=== PATIENT | male | born 1955 | race Caucasian/White ===

== ENCOUNTER → 2023-09-11 12:45 | Outpatient (REF) | payer MEDICARE, SELFPAY | LOC: RAD 12:45 | PROVIDERS: ATTENDING PHYSICIAN Surgery Vascular Surgery | DX: I73.9 Peripheral vascular disease, unspecified (principal) | CPT/HCPCS: 93922; 93925 ==

== ENCOUNTER 2023-09-16 15:15 | Inpatient (IN) | payer MEDICARE, SELFPAY ==
[2023-09-16] VITALS (34 sets, daily range): BP systolic 109–154; BP diastolic 62–84; BMI 31.4
[2023-09-16 11:15] LABS: APTT 23.1 Sec (23.4-35.0); INR 0.93; PT 12.5 Sec (11.4-14.6)
[2023-09-16 11:28] LABS: Hemoglobin 16.4 g/dL (13.0-18.0); Mean Corp Hgb Conc. 34.9 g/dL (33.0-37.0); Mean Corpuscular Hgb 30.5 pg (27.0-31.0); Mean Corpuscular Volume 87.5 fL (80.0-94.0); Mean Platelet Volume 9.8 fL (7.4-10.4); Platelet Count 201 10^3/uL (130-400); Red Blood Cell Count 5.37 10^6/uL (4.70-6.10); Red Cell Dist. Width 13.7 % (11.5-14.5); White Blood Cell Count 5.1 10^3/uL (4.8-10.8)
[2023-09-16 11:32] LABS: Blood Urea Nitrogen 14 mg/dl (9-20); Calcium 9.6 mg/dl (8.4-10.2); Carbon Dioxide 28 mmol/L (22-30); Chloride 104 mmol/L (98-107); Glucose 203 mg/dl (70-99); Potassium 4.1 mmol/L (3.5-5.1); Sodium 139 mmol/L (135-145); eGFR > 60.00
[2023-09-16 11:45] LABS: Glucose - Point of Care 189 mg/dl (70-99)
[2023-09-16] MEDS: NSS 272 ML IV (11:53)
--- NOTE | 2023-09-16 13:36 | W.SUR.PREOP ---
Pre-Operative Surgical Note
-
I have examined this patient prior to the performance of the scheduled procedure.
The patient's condition is unchanged from the time of the current History and
Physical and the patient is able to undergo the scheduled procedure.
--- NOTE | 2023-09-16 15:08 | W.SUR.POST ---
Surgical Immediate Post Op
Note
Pre Op Diagnosis: PAD
Post Op Diagnosis: PAD
Procedure Performed: RLE angiogram, right IVL/PRESSURIZER/stent to popliteal artery, balloon angioplasty TP trunk
Primary Surgeon: Ryan
Anesthesia: local and sedation
Estimated Blood Loss: <2cc
Fluids: see anesthesia flow sheet
Drains/Shunts: none
Specimens/Cultures: none
Doppler/Duplex/Angio (Y/N): Y
Complications: none
Operative Findings: palpable PT upon completion
[2023-09-16 15:15] LABS: Glucose - Point of Care 178 mg/dl (70-99)
[2023-09-16] MEDS: NSS 1000 IV (17:13)
[2023-09-16] MEDS: HEPARIN SC (17:14)
--- NOTE | 2023-09-16 17:18 | OR.RPT ---
Operative Report
Operative Report
PROCEDURE DATE: 09/16/2023
Preoperative diagnosis: Severe debilitating right calf claudication.
Postoperative diagnosis: Same
Procedure:
1. Duplex assisted left common femoral artery cannulation.
2. Aortogram and pelvic angiogram.
3. Right lower extremity arteriogram with third order vessel catheterization of right posterior tibial artery via left common femoral artery puncture.
4. Shockwave lithotripsy balloon angioplasty (IVL) right popliteal artery severe plaque stenosis with 5 mm shockwave angioplasty balloon.
5. Plain old balloon angioplasty right popliteal artery with a 5 mm x 4 cm angioplasty balloon.
6. Placement of Zilver PTX 6 mm x 4 cm stent behind the knee popliteal artery.
7. Balloon angioplasty of severe tibioperoneal trunk stenosis with 3.5 mm and then 4 mm angioplasty balloon.
8. Left femoral angiogram.
9. Supervision interpretation.
Surgeon: Ryan
Furnace Operator Oil Or Gas: None
Complications: None
Anesthesia: Local, sedation
Fluoroscopy:
13.9 min
72 mGy
16.39 Gy.cm2
Indications for procedure:
Debilitating right calf claudication. Risk/benefits/alternatives of revascularization were also discussed. Patient understood all wish to proceed.
Description of procedure:
Patient was identified, brought to the operating room. Placed on the table in the supine position. After the adequate administration of anesthesia, the patient was prepped and draped in the standard surgical fashion. A standard preoperative
timeout was undertaken and everybody was in agreement with the plan.
The left common femoral artery was accessed with a micropuncture kit under direct duplex ultrasound guidance. A 5 Kittitian sheath was then advanced over a 0.035 inch wire, and a meier's hook catheter was advanced into the abdominal aorta.
Aortogram and pelvic angiogram was obtained. Findings as follows:
Infrarenal aorta: [Patent with no significant stenosis]
Right common iliac artery: [Patent with no significant stenosis]
Right external iliac artery:[Patent with no significant stenosis]
Left common iliac artery:[Patent with no significant stenosis]
Left external iliac artery:[Patent with no significant stenosis]
Using a floppy angled hydrophilic wire, the right common femoral artery was cannulated and the catheter was advanced. Right lower extremity arteriogram was obtained. Findings as follows:
Common femoral artery: Patent with mild atherosclerotic plaque, no significant stenosis.
Profunda femoris artery: Patent with no significant stenosis.
Superficial femoral artery: Patent with no significant stenosis. There was 1 focal popcorn like plaque, but did not appear to cause a significant stenosis or flow limitation.
Popliteal artery: Severe bulky atherosclerotic calcified plaque behind the knee popliteal artery in the midsegment with focal occlusion or near occlusion.
Anterior tibial artery: Patent origin and then occluded.
Tibial peroneal trunk: Patent with severe proximal stenosis.
Peroneal artery: Patent proximally with poor filling distally.
Posterior tibial artery: Patent with no significant stenosis, crossed ankle onto the foot. Dominant runoff vessel to the foot.
At this point I selectively cannulated the right superficial femoral artery. I then placed up and over 6 Kittitian sheath access. I gave the patient an appropriate dose of heparin. Next under roadmap assisted guidance with some difficulty I was
finally able to traverse the popliteal artery occlusion with a flap angled hydrophilic wire and a CXI catheter. I then gained wire access into the posterior tibial artery after traversing the tibioperoneal trunk stenosis with some difficulty. I
then exchanged for a 0.014 inch wire. Given the heavy plaque/calcified nature of the popliteal artery stenosis I felt that standard angioplasty alone would not dilate this enough. Therefore, I then performed shockwave lithotripsy angioplasty of
the behind the knee heavily calcified stenosis. I used a 5 mm x 4 cm shockwave IVL catheter. Completion angiogram demonstrated reasonable result but there was still some moderate residual stenosis. Significantly improved from pre-angioplasty. I
then balloon angioplastied the tibioperoneal trunk stenosis with a 3 mm angioplasty balloon. Completion angiogram demonstrated marginal improvement. Next, however, I angioplastied the popliteal artery stenosis again with a 5 mm plain old standard
angioplasty balloon.. However I still could not get the waist to resolve completely. I therefore then used a 6 mm x 4 cm Zilver PTX stent. This was post angioplastied with a 5 mm balloon at higher inflation pressure. I still could not completely
resolve the waist/mild stenosis but it was not flow-limiting. Now I turned my attention again to the tibioperoneal trunk. I used a 4 mm angioplasty balloon based on the size of the vessel proximal and distal. I used a prolonged inflation.
Completion angiogram now demonstrated significantly improved result. Mild residual stenosis noted. Patent flow into the runoff. At this point I was satisfied and felt nothing further to do endovascularly. I therefore then withdrew my sheath into
the left external iliac artery. Left femoral angiogram demonstrated good puncture in the left common femoral artery. Therefore we exchanged for a short 6 Kittitian sheath. Wires and catheters were withdrawn. Patient was transported to the recovery
room where the sheath was withdrawn and manual pressure was applied. Hemostasis was fully achieved. Of note he was given some protamine to reverse the heparin.
The patient tolerated procedure well. Upon completion he had a 1+/2+ palpable right PT pulse.
--- NOTE | 2023-09-16 17:20 | PTCARENOTE ---
Received the patient from PACU in a stretcher. The patient is aaox3, vital sign are stable. He is 100% a-paced on the monitor. Left groin dressing is c/d/i. Positive pedal and tibial pulses are noted by Doppler BL. He has no complaints of pain. I
oriented him to his room. I instructed him on his activity restrictions and expected OOB time. His call moreno is within reach. His daughter is at his bedside.
[2023-09-16 17:39] LABS: Glucose - Point of Care 229 mg/dl (70-99)
[2023-09-16] MEDS: LANTUS 0.25 UNITS SC (18:34)
[2023-09-16] MEDS: NOVOLOG FLEXPEN 10 UNITS SC (19:04)
[2023-09-16] MEDS: COREG 25 MG PO (20:10)
--- NOTE | 2023-09-16 20:30 | PTCARENOTE ---
Addendum entered by Jasson Roman RN 09/16/23 21:43:
Assumed care. Daughter at bedside. Brazilian accent speaks [place] Islander. Left femoral site CDI, soft. Pulses with Doppler, weaker left pedal and left posterior tib. in comparison to the right. Both verified with Doppler, this is unchanged from handoff from
prior nurse. Patient does have some intermittent mild loss of sensation to the top of right foot, can feel me touching his foot, his leg and foot repositioned in bed with some relief, both feet and legs warm to touch. SR on telemetry, denies pain,
call moreno in reach
Addendum entered by Jasson Roman RN 09/16/23 20:39:
Assumed care. Daughter at bedside to help translate, yemeni speaking. Left femoral site CDI, soft. Pulses with Doppler, weaker left pedal and left posterior tib. in comparison to the right. Both verified with Doppler, this is unchanged from handoff
from prior nurse. Patient does have some intermittent mild loss of sensation to the top of right foot, can feel me touching his foot, his leg and foot repositioned in bed with some relief, both feet and legs warm to touch. SR on telemetry, denies
pain, call moreno in reach
Original Note:
Assumed care. Daughter at bedside to help translate, yemeni speaking. Left femoral site CDI, soft. Pulses with Doppler, weaker left pedal and left posterior tib. in comparison to the right. Both verified with Doppler, this is unchanged from handoff
from prior nurse. Patient does have some intermittent loss of sensation to the top of right foot, leg and foot repositioned in bed with some relief, both feet and legs warm to touch. SR on telemetry, denies pain, call moreno in reach
[2023-09-16 21:30] LABS: Glucose - Point of Care 339 mg/dl (70-99)
[2023-09-16] MEDS: ZETIA 10 MG PO (21:41)
[2023-09-16] MEDS: ENTRESTO 24 MG/26 MG 1 TAB PO (21:41)
[2023-09-16] MEDS: CRESTOR 20 MG PO (21:41)
--- NOTE | 2023-09-16 21:49 | PTCARENOTE ---
Blood sugar elevated, just finished eating around 8 pm, will re-assess. Patient assisted out of bed, voided.
[2023-09-16 22:56] LABS: Glucose - Point of Care 329 mg/dl (70-99)
[2023-09-16] MEDS: NOVOLOG FLEXPEN-LOW RESISTANCE 4 UNITS SC (23:48)
[2023-09-16] MEDS: HEPARIN 5000 UNITS SC (23:48)
--- NOTE | 2023-09-17 00:07 | PTCARENOTE ---
Blood sugars elevated since dinner. Orders received for sliding scale insulin, 4 units given
[2023-09-17 03:47] LABS: Glucose - Point of Care 229 mg/dl (70-99)
--- NOTE | 2023-09-17 04:03 | PTCARENOTE ---
Patient awake, blood sugar 229. VSS. Has mild loss of sensation to outer aspect of his feet that comes and goes. Pulses verified with Doppler, feet and legs are warm to touch. Left groin site soft
[2023-09-17 07:50] LABS: Glucose - Point of Care 242 mg/dl (70-99)
--- NOTE | 2023-09-17 07:57 | W.PN.VS ---
Addendum entered and electronically signed by Rosalio Davis MD 09/17/23 10:46:
Seen and examined with KIMMIE Cowart. Agree with findings as noted below. Left groin puncture site flat, no hematoma. Right foot warm with 2+ palpable PT pulse. Plan/as discussed and noted below.
Original Note:
Today's Communication / Plan
-
Seen and assessed with Dr. Davis
Assessment/Plan
-
POD 1 Shockwave lithotripsy balloon angioplasty (IVL) right popliteal artery severe plaque stenosis with 5 mm shockwave angioplasty balloon, Plain old balloon angioplasty right popliteal artery with a 5 mm x 4 cm angioplasty balloon. Placement of
Zilver PTX 6 mm x 4 cm stent behind the knee popliteal artery. Balloon angioplasty of severe tibioperoneal trunk stenosis with 3.5 mm and then 4 mm angioplasty balloon.
Plan:
-Okay for DC from vascular standpoint
-May resume Eliquis
-Follow-up noted in chart
Subjective Data
-
Date of Service: September 17, 2023
Patient seen at bedside this a.m. with Dr. Davis. No events overnight. Patient no complaints at this time groin site is stable
Objective Data
-
Vital Signs
Temp Pulse Resp BP Pulse Ox
97.8 F 74 20 124/77 93
09/17/23 07:38 09/16/23 23:45 09/17/23 07:38 09/16/23 23:00 09/17/23 07:38
Intake and Output
09/16/23 09/17/23 09/18/23
06:59 06:59 06:59
Intake Total 855 / 855
Balance 855 / 855
Intake:
IV fluids (Total) 855 / 855
normosol 580 / 580
Other:
Number of approximated LARGE 1
amounts of urine
Lab Results
09/16/23 10:54
09/16/23 10:54
Calcium 9.6 mg/dl (8.4-10.2) 09/16/23 10:54
Physical Exam
-
AAOx3
No tachypnea on room air
No tachycardia
Abdomen soft nontender
Groin site clean dry and intact, soft, no hematoma
Bilateral feet warm
Palpable PT pulse
--- NOTE | 2023-09-17 08:00 | W.DS.TRANS ---
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
-
Discharge Instructions:
Sleep Apnea Risk High
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
angioplasty TP trunk
Diet Diabetic, Carb Controlled
Activity No strenuous activity
Driving Restrictions No driving for 24 hours
Bathing Restrictions OK to Shower
Others Tests Ultrasound:10/21/23 at 3pm
Instructions:
Stand-Alone Forms: DC Instr - Vascular OR
Changes to Home Medications: No
Discharge Medications:
DC Medications w/original date entered in [facility]
aspirin 81 mg tablet,delayed release 81 mg PO DAILY 03/17/17
carvedilol 12.5 mg tablet 25 mg PO BID 03/17/17
dulaglutide 0.75 mg/0.5 mL subcutaneous pen injector (Trulicity) 0.75 mg SQ SA 03/17/17
furosemide 40 mg tablet 40 mg PO DAILY 03/17/17
sacubitril 24 mg-valsartan 26 mg tablet (Entresto) 1 ea PO BID 03/17/17
spironolactone 25 mg tablet 12.5 mg PO DAILY 03/17/17
metformin 1,000 mg tablet 1,000 mg PO BID@0800,1700 ##0 03/18/17
apixaban 5 mg tablet (Eliquis) 5 mg PO BID 09/16/23
empagliflozin 25 mg tablet (Jardiance) 25 mg PO DAILY 09/16/23
ezetimibe 10 mg tablet 10 mg PO HS 09/16/23
icosapent ethyl 1 gram capsule 2 g PO BID 09/16/23
insulin aspart U-100 100 unit/mL subcutaneous solution (Novolog U-100 Insulin aspart) 10 unit SC TID 09/16/23
insulin glargine 100 unit/mL subcutaneous cartridge 25 unit SC QPM 09/16/23
omega 2-pxc-cvi-fish oil 1,200 mg (144 mg-216 mg) capsule (Fish Oil) 1 cap PO DAILY 09/16/23
pantoprazole 40 mg tablet,delayed release 40 mg PO DAILY 09/16/23
rosuvastatin 20 mg tablet 20 mg PO HS 09/16/23
Home Medication Changes
Pending Results: No
[2023-09-17 08:10] LABS: Glucose - Point of Care 233 mg/dl (70-99)
[2023-09-17] MEDS: ALDACTONE 12.5 MG PO (08:10)
[2023-09-17] MEDS: ELIQUIS 5 MG PO (08:11)
[2023-09-17] MEDS: COREG 25 MG PO (08:11)
[2023-09-17] MEDS: ENTRESTO 24 MG/26 MG 1 TAB PO (08:11)
[2023-09-17] MEDS: ASPIR LOW (ENTERIC COATED) 81 MG PO (08:11)
[2023-09-17] MEDS: NOVOLOG FLEXPEN 10 UNITS SC (08:12)
[2023-09-17] MEDS: LASIX 40 MG PO (08:12)
[2023-09-17] MEDS: PROTONIX 40 MG PO (08:12)
[2023-09-17] MEDS: JARDIANCE 25 MG PO (08:12)
[2023-09-17] MEDS: NOVOLOG FLEXPEN-LOW RESISTANCE 12 UNITS SC (08:13)
--- NOTE | 2023-09-17 08:14 | W.DCSUMMARY ---
Discharge Summary
Discharge Data
Date of Admission: 09/16/23
Date of Discharge: 09/17/23
-
Pending Results: No
Hospital Course
Attending: Ryan
Consultants: None
Allergies: NKDA
Procedure with date: 09/16/2023: Aortogram and pelvic angiogram, right lower extremity arteriogram with third order vessel catheterization of right posterior tibial artery via left common femoral artery puncture
Shockwave lithotripsy balloon angioplasty right popliteal artery with 5 mm shockwave balloon
Plain old balloon angioplasty right popliteal artery with 5 mm x 4 balloon
Placement of silver PTX 6 x 4 stent behind the knee popliteal artery
Balloon angioplasty of severe tibioperoneal trunk stenosis with a 3.5 x 4 balloon
History of present illness: The patient is an 68-year-old male with multiple medical conditions including: carotid stenosis, diabetes, chronic heart failure, left ventricular dysfunction, coronary artery disease with stents, left bundle branch
block, subdural hematoma with craniotomy, BiV ICD, lower extremity stent placement.. Patient presented on 09/16/2023 for scheduled procedure with Dr. Davis. Patient presented at baseline health with no reports of recent illness or trauma.
Hospital Course: Briefly, the patient underwent scheduled lower extremity angiogram without complications, and recovered in PACU. Following recovery phase one and two patient was transferred to IVU for continued monitoring. POD #1 (09/17/2023)
Patient doing well and tolerating PO diet. Surgical groin site clean, dry, and intact and soft. No evidence of hematoma. Patient able to ambulate without difficulty or incident. Patient stable for discharge to home.
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 All instructions were given to the patient in both written and verbal form and the patient expressed understanding.
Discharge Plan
-
Patient Disposition: Home (Routine Discharge)
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
Condition: Good
Diet: Diabetic, Carb Controlled
Activity: No strenuous activity
Driving Restrictions: No driving for 24 hours
Bathing Restrictions: OK to Shower
Others Tests: Ultrasound:10/21/23 at 3pm
Stand Alone Forms: DC Instr - Vascular OR
Referrals:
Nneka García PA-C [Specified Professional Personl] - 10/27/23 10:15 am (Vascular follow up)
Félix Moraes MD [Family Provider] -
Prescriptions:
Continued
furosemide 40 MG tablet
40 mg PO DAILY
carvedilol 12.5 MG tablet
25 mg PO BID
aspirin 81 MG tablet,delayed release (DR/EC)
81 mg PO DAILY
Trulicity 0.75 MG/0.5 ML pen injector
0.75 mg SQ SA
Entresto 1 EACH tablet
1 ea PO BID
spironolactone 12.5 MG tablet
12.5 mg PO DAILY
insulin aspart U-100 [Novolog U-100 Insulin aspart] 100 unit/mL Solution
10 unit SC TID
ezetimibe 10 mg Tablet
10 mg PO HS
rosuvastatin 20 mg Tablet
20 mg PO HS
insulin glargine 100 unit/mL Cartridge
25 unit SC QPM
Jardiance 25 mg Tablet
25 mg PO DAILY
pantoprazole 40 mg Tablet,Delayed Release (Dr/Ec)
40 mg PO DAILY
omega 4-zxz-dum-fish oil [Fish Oil] 1,200 (144-216) mg Capsule
1 cap PO DAILY
icosapent ethyl 1 gram Capsule
2 g PO BID
Held
metformin 1,000 MG tablet
1,000 mg PO BID@0800,1700 Qty: 0 0RF
Hold Instructions: Resume on 09/18/23.
Eliquis 5 mg Tablet
5 mg PO BID
Hold Instructions: Resume on 09/17/23.
Discharge Orders:
Discharge Patient (As Directed); Ordered 09/17/23
Ordered By: Katerin Cowart
[2023-09-17 08:29] VITALS: BMI 31.4
--- NOTE | 2023-09-17 08:31 | PTCARENOTE ---
Rec'd pt this shift awake and alert in bed. Pt V-paced on monitor. RA, lungs clear. AM meds given. Pt denies pain, denies sob. Pt ambulating in room and in hallway without difficulty. Left groin dsg intact, no bleeding, no hematoma. Rt DP and PT
pulses via doppler. Left DP and PT pulses via doppler. AM meds given. See worklist for VS/I and O and assessments.
--- NOTE | 2023-09-17 10:27 | PTCARENOTE ---
discharge instructions given to patient and patients daughter, encouraged questions. INT d/c'd.
--- NOTE | 2023-09-17 10:43 | CM ---
CM following for DC planning needs.
Met w/ patient, dtr. at bedside. Pt. resides w/ spouse in a private home. He is functionally indep. at baseline w/ ADLs, mobility.
DC plan is for home without needs,.
== END 2023-09-17 10:36 | disposition home or self-care (01) | DRG 279 ==
LOC: IVU 15:15
PROVIDERS: ADMITTING PHYSICIAN Surgery Vascular Surgery; FAMILY PHYSICIAN Internal Medicine
PROC: 04FM3ZZ Fragmentation of Right Popliteal Artery, Percutaneous Approach (ICD-10-PCS; 2023-09-16)
PROC: 047T3ZZ Dilation of Right Peroneal Artery, Percutaneous Approach (ICD-10-PCS; 2023-09-16)
PROC: 047M3DZ Dilation of Right Popliteal Artery with Intraluminal Device, Percutaneous Approach (ICD-10-PCS; 2023-09-16)
PROC: 047P3ZZ Dilation of Right Anterior Tibial Artery, Percutaneous Approach (ICD-10-PCS; 2023-09-16)
DX: E11.51 Type 2 diabetes mellitus with diabetic peripheral angiopathy without gangrene (principal); I70.211 Atherosclerosis of native arteries of extremities with intermittent claudication, right leg; I50.9 Heart failure, unspecified; I25.10 Atherosclerotic heart disease of native coronary artery without angina pectoris; I44.7 Left bundle-branch block, unspecified; Z95.810 Presence of automatic (implantable) cardiac defibrillator; Z95.5 Presence of coronary angioplasty implant and graft
CPT/HCPCS: 37226; 37228; 75625; 75716; 76937; 80048; 82962; 85027; 85610; 85730; 86850; 86900; 86901; 93005; C1725; C1769; C1874; C1887; C1894; Q9967

== ENCOUNTER → 2023-10-21 14:47 | Outpatient (REF) | payer MEDICARE, SELFPAY | LOC: RAD 14:47 | PROVIDERS: ATTENDING PHYSICIAN Surgery Vascular Surgery | DX: I73.9 Peripheral vascular disease, unspecified (principal) | CPT/HCPCS: 93922; 93925 ==

== ENCOUNTER → 2024-04-01 12:42 | Outpatient (REF) | payer MEDICARE, SELFPAY | LOC: RAD 12:42 | PROVIDERS: ATTENDING PHYSICIAN Physician Assistant; FAMILY PHYSICIAN Internal Medicine | DX: I73.9 Peripheral vascular disease, unspecified (principal) | CPT/HCPCS: 93922; 93925 ==

== ENCOUNTER → 2024-07-11 13:07 | Outpatient (REF) | payer MEDICARE, SELFPAY | LOC: RAD 13:07 | PROVIDERS: ATTENDING PHYSICIAN Registered Nurse | DX: I73.9 Peripheral vascular disease, unspecified (principal) | CPT/HCPCS: 93922; 93925 ==

== ENCOUNTER 2024-07-21 07:32 | Day surgery (SDC) | payer MEDICARE, SELFPAY ==
[2024-07-21] VITALS (13 sets, daily range): BP systolic 119–152; BP diastolic 67–105; BMI 26.8
[2024-07-21 08:13] LABS: Glucose - Point of Care 139 mg/dl (70-99)
[2024-07-21 08:15] LABS: Hematocrit 47.3 % (39.0-52.0); Hemoglobin 16.3 g/dL (13.0-18.0); Mean Corp Hgb Conc. 34.5 g/dL (33.0-37.0); Mean Corpuscular Hgb 30.4 pg (27.0-31.0); Mean Corpuscular Volume 88.1 fL (80.0-94.0); Platelet Count 164 10^3/uL (130-400); Red Blood Cell Count 5.37 10^6/uL (4.70-6.10); Red Cell Dist. Width 13.8 % (11.5-14.5); White Blood Cell Count 5.7 10^3/uL (4.8-10.8)
[2024-07-21 08:23] LABS: INR 0.87; PT 12.2 Sec (11.4-14.6)
[2024-07-21 08:24] LABS: APTT 25.4 Sec (23.4-35.0)
[2024-07-21 08:30] LABS: Blood Urea Nitrogen 21 mg/dl (9-20); Calcium 9.6 mg/dl (8.4-10.2); Carbon Dioxide 26 mmol/L (22-30); Chloride 103 mmol/L (98-107); Estimated Creatinine Clearance 78 ml/min; Glucose 130 mg/dl (70-99); Potassium 4.2 mmol/L (3.5-5.1); Sodium 140 mmol/L (135-145); eGFR > 60.00
--- NOTE | 2024-07-21 10:37 | W.SUR.POST ---
Surgical Immediate Post Op
Note
Pre Op Diagnosis: PAD
Post Op Diagnosis: PAD
Procedure Performed: Aortogram, bilateral lower extremity angiogram, left lower extremity SPOT SPRAYER to in-stent stenosis of popliteal artery
Primary Surgeon: Rosalio Davis MD
Secondary Surgeons: N/A
Anesthesia: GETA
Estimated Blood Loss: 2 mL
Fluids: See anesthesia flowsheet
Drains/Shunts: N/A
Specimens/Cultures: N/A
Doppler/Duplex/Angio (Y/N): Y
Complications: None
Operative Findings: Successful endovascular intervention
[2024-07-21 11:05] LABS: Glucose - Point of Care 69 mg/dl (70-99)
[2024-07-21 11:21] LABS: Glucose - Point of Care 69 mg/dl (70-99)
[2024-07-21 11:41] LABS: Glucose - Point of Care 100 mg/dl (70-99)
--- NOTE | 2024-07-21 11:48 | OR.RPT ---
Operative Report
Operative Report
PROCEDURE DATE: 07/21/2024
Preoperative diagnosis:
1. Severe peripheral arterial disease left lower extremity status post left lower extremity angioplasty/stent of popliteal artery with in-stent restenosis and debilitating left calf claudication, and possible early ischemic rest pain left first toe
as well as small punctate ulceration/lesion at nailbed.
2. Right lower extremity severe peripheral arterial disease status post right lower extremity angioplasty/stent of popliteal artery with in-stent restenosis.
Postoperative diagnosis: Same
Procedure:
1. Duplex assisted right common femoral artery cannulation.
2. Aortogram and pelvic angiogram.
3. Left lower extremity arteriogram with third order vessel catheterization of left peroneal artery via right common femoral artery puncture.
4. Balloon angioplasty of severe in-stent restenosis left behind the knee popliteal artery with Bard Lutonix 5 mm x 40 mm drug-coated balloon.
5. Balloon angioplasty severe in-stent restenosis left behind the knee popliteal artery with Green high-pressure 5 mm x 40 mm balloon.
6. Right lower extremity arteriogram.
7. Right common femoral [place] Pro-glide percutaneous suture closure.
8. Supervision and interpretation.
Surgeon: Ryan
Opener: None
Complications: None
Anesthesia: Local, sedation but then converted to general anesthesia secondary to rhinorrhea or drainage, in order to protect airway from any risk of aspiration.
Fluoroscopy:
8.6 min
63 mGy
17.37 Gy.cm2
Indications for procedure:
History of bilateral popliteal stents. Developed recurrent severe left claudication, possible early ischemic rest pain as well as small punctate ulceration/lesion at nailbed. Therefore concern for early critical limb ischemia. In addition duplex
surveillance demonstrated significant right sided in-stent restenosis as well. Therefore brought for angiography. Risk/benefits/alternatives also discussed. Patient understood all wished to proceed.
Description of procedure:
Patient was identified, brought to the operating room. Placed on the table in the supine position. After the adequate administration of anesthesia, the patient was prepped and draped in the standard surgical fashion. A standard preoperative
timeout was undertaken and everybody was in agreement with the plan.
The right common femoral artery was accessed with a micropuncture kit under direct duplex ultrasound guidance. A 5 Cuban sheath was then advanced over a 0.035 inch wire, and a meier's hook catheter was advanced into the abdominal aorta.
Aortogram and pelvic angiogram was obtained. Findings as follows:
Infrarenal aorta: Patent with no significant stenosis (eccentric calcified plaque but no stenosis)
Right common iliac artery: Patent with no significant stenosis (eccentric calcified plaque but no stenosis)
Right external iliac artery:Patent with no significant stenosis
Left common iliac artery:Patent with no significant stenosis (eccentric calcified plaque but no stenosis)
Left external iliac artery:Patent with no significant stenosis
Using a floppy angled hydrophilic wire, the left common femoral artery was cannulated and the catheter was advanced. Left lower extremity arteriogram was obtained. Findings as follows:
Common femoral artery: Patent with no significant stenosis
Profunda femoris artery: Patent with no significant stenosis
Superficial femoral artery: Patent with no significant stenosis. Stents originating in the distal superficial femoral artery patent with no significant stenosis.
Popliteal artery: Continuation of overlapping stents from the SFA into the popliteal artery with severe behind the knee popliteal artery in-stent restenosis. String-like severe stenosis.
Anterior tibial artery: Patent proximally but then occluded
Tibial peroneal trunk: Patent with no significant stenosis
Peroneal artery: Patent but became somewhat diminutive more distally.
Posterior tibial artery: Patent with no significant stenosis
At this point I selectively cannulated the left superficial femoral artery and then exchanged for an up and over 6 Cuban sheath over Storq wire. The patient was given an appropriate dose of heparin. Next, under roadmap assisted guidance with some
difficulty using a flopping of hydrophilic wire and a CXI catheter was finally able to traverse the area of in-stent restenosis. Wire and catheter were advanced and confirmed angiographically to be in the true lumen. I then advanced a wire into
the peroneal artery and exchanged back from a Storq wire. Next, I performed angioplasty of the severe in-stent restenosis with a drug-coated balloon using a Bard Lutonix 5mm x 40mm balloon with prolonged inflation. I could not get the waist in the
balloon to completely resolve in the most severely stenotic segment. Therefore once I completed the prolonged inflation here, the balloon was deflated and exchanged for a Green high-pressure 5 mm x 40 mm balloon. The balloon better expanded here
but could not get complete resolution of the waist even with this high-pressure balloon at high atmospheres. Completion angiogram however demonstrated an much improvement. Significant resolution of the stenosis with mild luminal irregularity and
mild stenosis residually. Much brisker flow through the popliteal into the runoff at this point. At this point I was satisfied and felt that there is nothing else endovascular to render. The sheath was then withdrawn to the right external iliac
artery. Right femoral angiogram demonstrated good puncture in the right common femoral artery. Right common femoral, profunda, SFA appeared patent although the profundus in this projection was overlying the SFA and was not as well-visualized at
its origin. The popliteal stent was patent with moderate to high-grade stenosis in the midsegment. Not as severe as the other side but still relatively significant. Proximally the anterior tibial artery appeared occluded. The tibioperoneal
trunk, peroneal, posterior tibial artery and the proximal course appeared to be patent. Distal runoff was not visualized. At this point I then exchanged the 6 Cuban sheath out for a [employer] Pro-glide percutaneous suture delivery device. This was
then deployed in the standard fashion. Manual pressure was also applied to the puncture site. Hemostasis was fully achieved.
The patient tolerated procedure well. Upon completion he had a weakly palpable PT pulse in the left foot.
[2024-07-21] MEDS: NSS 500 IV (12:18)
--- NOTE | 2024-07-21 12:36 | W.PN.UPDATE ---
Update Note
Progress Note Update
Note intraoperatively upon induction of sedation, patient had significant rhinorrhea type clear nasal discharge. Some mucousy nasal discharge as well. No severe coughing. No drop in his oxygen saturations. In discussion with anesthesia, it was
felt that general anesthesia may be better and protective of his airway. Therefore he was induced under general anesthesia. Procedure was completed without difficulty. Given the episode, I felt more prudent to get a chest x-ray post procedurally.
Chest x-ray report demonstrates mild right upper lobe pneumonia possible. Therefore I am not clear that this could be an aspiration event. When I talked to the patient's family just now they note that he had been sick recently with the same thing
his had had which sounds like an upper respiratory infection. Patient also has history of sinus issues per the family. Regardless based on this we will cover him with antibiotics. He is having no shortness of breath or no coughing currently.
He feels very comfortable. We will cover him with antibiotics and I did discuss with the patient and his daughter that should he have any shortness of breath/cough/fevers to call our office immediately or present back to the emergency room.
== END 2024-07-21 13:22 | disposition home or self-care (01) ==
LOC: CATH 07:32
PROVIDERS: ATTENDING PHYSICIAN Surgery Vascular Surgery; FAMILY PHYSICIAN Internal Medicine; OTHER PHYSICIAN Internal Medicine Cardiovascular Disease
DX: I70.245 Atherosclerosis of native arteries of left leg with ulceration of other part of foot (principal); I70.211 Atherosclerosis of native arteries of extremities with intermittent claudication, right leg; L97.529 Non-pressure chronic ulcer of other part of left foot with unspecified severity; T82.856D Stenosis of peripheral vascular stent, subsequent encounter; Y83.9 Surgical procedure, unspecified as the cause of abnormal reaction of the patient, or of later complication, without mention of misadventure at the time of the procedure; E11.9 Type 2 diabetes mellitus without complications; I25.10 Atherosclerotic heart disease of native coronary artery without angina pectoris; Z95.5 Presence of coronary angioplasty implant and graft; I50.9 Heart failure, unspecified; I44.7 Left bundle-branch block, unspecified; Z79.85 Long-term (current) use of injectable non-insulin antidiabetic drugs; Z79.01 Long term (current) use of anticoagulants; Z79.84 Long term (current) use of oral hypoglycemic drugs; Z79.4 Long term (current) use of insulin; Z79.899 Other long term (current) drug therapy
CPT/HCPCS: 37224; 71045; 75625; 75716; 80048; 82962; 85027; 85610; 85730; 86850; 86900; 86901; 93005; C1760; C1769; C1887; C1894; C2623; Q9967

== ENCOUNTER 2024-07-26 09:23 | Inpatient (IN) | payer MEDICARE, SELFPAY ==
[2024-07-26] VITALS (15 sets, daily range): BP systolic 93–148; BP diastolic 34–75; BMI 31.4; BMI 30.9
--- NOTE | 2024-07-26 07:30 | ED.GENMED ---
History of Present Illness
General
Chief Complaint: Post Operative Problem(s)
Source: patient and family
Exam Limitations: none
Time Seen by Provider: 07/26/24 07:14
History of Present Illness
History of Present Illness:
69-year-old male recent angioplasty to the left popliteal artery. 2 to 3 days of increasing pain. Some numbness and weakness at times. Apparently seen in the office yesterday and recommended to come yesterday. Patient however elected to wait
till today.
Past History
Past History
ED Past Medical History: CAD, HTN, Hypercholesterolemia and NIDDM
ED Past Surgical History: Cardiac (Defibrillator) and Other (Subdural hematoma. Deviated septum. Cataract surgery. Vascular surgery)
Review of Systems
Review of Systems
All Other Systems: Not applicable
Constitutional: Denies fever or chills
ABD/GI: Reports no symptoms
Phy Exam
Physical Exam
Physical Exam:
GENERAL: Alert and oriented in no apparent distress
EYE: Orbits normal.
NECK: Supple
CARDIAC: Regular rate and rhythm without any obvious murmurs. Palpable left femoral pulse. No palpable popliteal, dorsalis pedis or posterior tibial pulses on the left.
LUNGS: Clear breath sounds,normal
ABDOMEN: Soft, without focal tenderness or distention
NEUROLOGICAL: Alert and oriented , grossly non-focal
SKIN: Warm and dry, no rash or lesion, no discoloration, skin intact.
MUSCULOSKELETAL: Slight temperature change and color change to the left lower extremity. Decreased plantar dorsiflexion of the foot.
PSYCH: Normal and appropriate interaction.
Course
Orders/Labs/Results
Orders:
Orders
07/26/24 Breakfast
2000 calorie (17 carb) Diabetic
At Your Request: Full Participation
07/26/24 07:17
IV Insert/Care/Rem.- Treatment PRN
07/26/24 07:22
US Periph Art LOWER Ext w MANISH Urgent
Comment: BL LE
Reason For Exam: s/p stenting now with pain/color/temp change
US Vascular Mapping Bilateral Urgent
Comment:
Reason For Exam: BL LE, requires bypass
07/26/24 07:34
CARDIOLOGY CONSULT Routine
Consulting Provider: Santo Sánchez
Was physician already notified: Yes
Reason for consult: cardiac optimization
07/26/24 07:48
Basic Metabolic Panel Urgent
Complete Blood Count/With Diff Urgent
Glycohemoglobin (HgbA1c) Urgent
PTT Urgent
Prothrombin Time Urgent
07/26/24 07:59
EKG [Electrocardiogram (*1)] Routine
Reason for Study: PreOp
Echo 2D MMode Color/Doppler Routine
Reason for Study: ICM
07/26/24 08:06
Add On- LAB Routine
Tests Added?: Hgba1c
07/26/24 08:52
Level of Care Change As Directed
Level of Care: Inpatient admission
Physician / Group: Hospitalist: Norm Olmstead
Diagnosis: PAD with occlusion
Reason for Hospitalization: Plan for vascular intervention
Expected length of stay greater than two midnights?: Yes
ELOS- Estimated Length of Stay in days: 2
I certify the patient meets the requirements for IP care: Yes
07/26/24 08:53
Admit Patient As Directed
Co-Sign Provider:
Level of Care: Inpatient admission
Assign to:: Medical/Surgical
Physician / Group: Hospitalist: Norm Olmstead
Diagnosis: PAD with occlusion
Reason for Hospitalization: Vascular intervention LLE
Expected length of stay greater than two midnights?: Yes
ELOS- Estimated Length of Stay in days: 2
I certify the patient meets the requirements for IP care: Yes
Code Status As Directed
Resuscitation Status: Full Code
Bisacodyl [Dulcolax] 10 mg RECTAL [id number] PRN
Docusate W/Senna [Senokot-S] 1 tablet PO BIDPRN PRN
Polyethylene Glycol Powder [Miralax] 17 grams PO DAILYPRN PRN
07/26/24 08:54
Activity As Directed
Activity Level: As Tolerated
Vital Signs As Directed
Frequency: Per unit guidelines
PRN Pain Medication Management As Directed
May give lesser potent ordered pain med per pt: Yes
preference::
Protocol:: Medication orders for pain may be administered in a
manner that supports deferring to patient preference
when the pt is:
- Requesting an ordered lesser potent pain medication.
Least to most potent pain medications are defined
as: acetaminophen < NSAID < tramadol < opioids
(morphine, oxycodone, hydromorphone).
- Requesting a lesser dose of the same medication IF
ORDERED.
- Requesting a less intrusive route of administration
if both routes are prescribed by the provider (PO <
IV).
07/26/24 08:55
DX Deep Vein Thrombosis Video Routine
07/26/24 08:59
Morphine Sulfate 2 mg IV Q4HPRN PRN
Oxycodone [Roxicodone] 5 mg PO Q4HPRN PRN
07/26/24 Dinner
NPO
Allow oral meds: Yes
Allow clear liquids: 4hrs prior to procedure
NPO with Ice Chips: Yes
Comment: may have unrestricted clear liquid up to 4 hrs prior to scheduled procedure
07/26/24 16:00
Heparin 5,000 units SC Q8
07/26/24 20:00
Amoxicillin 500 mg/Clav 125 mg [Augmentin 500 mg/125 mg] 1 tablet PO Q12
07/27/24 06:00
Basic Metabolic Panel IN AM
Complete Blood Count/No Diff IN AM
Lipid Profile [Cardiovascular Evaluation] IN AM
Abnormal Lab Results
07/26/24
07:48
Absolute Lymphs (auto) 0.7 L 10^3/uL
(1.2-3.4)
Lymphocytes % 15.2 L %
(20.5-51.1)
Monocytes % 10.2 H %
(1.7-9.3)
PT 14.7 H Sec
(11.4-14.6)
Sodium 132 L mmol/L
(135-145)
Carbon Dioxide 20 L mmol/L
(22-30)
BUN 23 H mg/dl
(9-20)
Glucose 384 H mg/dl
(70-99)
Hemoglobin A1c 10.4 H %
(4.0-5.6)
07/26/24 07:48
07/26/24 07:48
Vital Signs
Initial and Last Documented VS:
Initial Vital Signs
Temp Pulse Resp BP Pulse Ox
98.3 F 84 20 148/68 98
07/26/24 06:48 07/26/24 06:48 07/26/24 06:48 07/26/24 06:48 07/26/24 06:48
Last Documented Vital Signs
Temp Pulse Resp BP Pulse Ox
98.3 F 68 25 130/72 93
07/26/24 07:44 07/26/24 10:45 07/26/24 10:45 07/26/24 10:00 07/26/24 10:45
MDM/Problems Addressed
Differential Diagnosis Includes:
High suspicion for vascular occlusion left popliteal artery. Immediately called vascular surgery with their involvement.
*Pulse Oximetry
Patient hypoxic: no
*Critical Care Note
Total Time (30-74mins, 75-104mins- exclusive of procedures): Not Applicable
Data Reviewed
Review of Other/Old Records Reveals: Labs, Records, Operative Reports and Testing
Update Note
Update Note:
Vascular surgery was contacted immediately upon exiting the room. They will evaluate the patient admit.
ED Attending Note
-
Portions of this chart may have been created with voice recognition software.� Occasional wrong word or��sound alike� substitutions may have occurred due to the inherent limitations of voice recognition software.
Discharge Plan
Departure
Patient Disposition: Admit
Date of Disposition: 07/26/24
Time of Disposition: 07:41
Presentation/result/management discussed w/ accepting MD/DO: Vascular surgery
Discharge Problem:
Arterial obstruction left leg, Recent angioplasty
Interventions
Interventions:
*Risk Screen - Suicide Last Done: 07/26/24 06:48
*General Assessment Last Done: 07/26/24 07:27
*Neglect/Abuse Screening Last Done: 07/26/24 06:48
ED- Fall Risk Assessment Last Done: 07/26/24 07:27
*ED COVID-19 Vaccine History Last Done: 07/26/24 07:27
ED-Musculoskeletal Assessment Last Done: 07/26/24 07:27
ED-Peripheral Vascular Assessment Last Done: 07/26/24 07:27
ED-Skin Assessment Last Done: 07/26/24 07:27
--- NOTE | 2024-07-26 07:30 | W.PN.UPDATE ---
Addendum entered and electronically signed by Alfredo Garcias III, MD 07/26/24 12:21:
This patient was seen and examined with AISLINN Ying. I agree with the history and physical exam as well as the assessment and plan. I have the following additions:
Recent left lower extremity popliteal intervention by Ryan
Presents with left foot pain progressive since Thursday
Arterial studies revealed occluded popliteal stent with distal reconstitution
Gross motor and sensory function intact in the left foot
He has a Doppler signal at the left posterior tibial artery at the medial malleolus
Plan to admit for intravenous heparin
Ryan planning bypass on this admission
Vein mapping reviewed
Discussed with patient and daughter
Signed:
Alfredo Garcias III, MD
[facility]
[phone] (amzv)
Original Note:
Update Note
Progress Note Update
Vascular consult: Office note below from 07/25/24
Plan:
-Admit to hospitalist
-LE arterial US with MANISH
-Vein mapping
-Cardiac optimization
-Likely will add to OR schedule Thursday for LLE bypass with Dr Davis
--- NOTE | 2024-07-26 07:45 | CON.CAR ---
Addendum entered and electronically signed by Santo Sánchez MD 07/26/24 09:44:
Patient seen and examined in collaboration with [employer]; agree with below.
-69-year-old male with peripheral vascular disease, CAD, ischemic cardiomyopathy (recovered LVEF), BiV ICD, PAF (on Eliquis), hyperlipidemia, and diabetes admitted with left lower extremity pain and coldness; patient underwent balloon angioplasty of
his left popliteal artery on 07/21/2024, but subsequently developed the symptoms.
-The patient is scheduled to go to the OR for lower extremity bypass tomorrow.
-The patient denies any anginal symptoms or any CHF symptoms; compensated on examination.
-Will update echocardiogram, but patient should proceed to the OR, given the urgency of his presentation.
-The patient will be at increased risk (likely moderate) given comorbidities and decreased functional status; Cardiology will will follow.
-take out waitress.
Original Note:
Consultation
Consultation Request
Date/Time Consultation Requested: 07/26/2024 07:35
Date/Time Consultation Performed: 07/26/2024 07:45
Requesting Provider: AISLINN Ying
Performing Provider: AISLINN Velasquez for Dr. Sánchez
Reason for Consultation: Cardiac optimization
Medical History
-
Chief Complaint: Cold foot
History of Present Illness:
Ross Oseguera is a 69-year-old male (known to Dr. Gray, his primary suspension cord tier), with ischemic cardiomyopathy (recovered), Medtronic BiV ICD, type 2 diabetes mellitus, coronary artery disease, paroxysmal atrial fibrillation (on apixaban),
dyslipidemia, and prior subdural hematoma s/p craniotomy and evacuation (2019), who presented to the emergency department with a chief complaint of cold foot. He had a left lower extremity a gram 07/21/2024 with balloon angioplasty of severe
in-stent restenosis in the left popliteal artery. The day following his procedure, his left foot pain returned. He also reported his foot was cold. He was referred to the emergency department for preferred an office visit. The plan is for left
lower extremity bypass by Dr. Davis tomorrow. Cardiology has been consulted for cardiac optimization. He has no chest pain. No current or recent heart failure exacerbations.
His daughter, Sussy, is very involved in his care.
Past Medical History
Past Medical History: Arrhythmias (Paroxysmal atrial fibrillation [on apixaban]), CAD, CHF (ICM [resolved]), Hypercholesterolemia, IDDM and Other (PAD, SDH s/p craniotomy and evacuation [2019])
Past Surgical History: Brain (Craniotomy [2019])
Social History
Tobacco: Former Smoker
Alcohol: None
Drug: None
Personal:
Living: With Family
Employment: Retired
Family History
Family History: Reviewed & Not Pertinent
Allergies / Home Medications
Allergy/AdvReac Type Severity Reaction Status Date / Time
No Known Allergies Allergy Verified 07/21/24 07:54
�Medication �Instructions �Recorded �Confirmed �Type
aspirin 81 mg tablet,delayed 81 mg PO DAILY 03/17/17 07/21/24 History
release
dulaglutide 0.75 mg/0.5 mL 0.75 mg SQ SA 03/17/17 07/20/24 History
subcutaneous pen injector
(Trulicity)
furosemide 40 mg tablet 40 mg PO DAILY 03/17/17 07/21/24 History
spironolactone 25 mg tablet 12.5 mg PO DAILY 03/17/17 07/21/24 History
metformin 1,000 mg tablet 1,000 mg PO BID@0800,1700 ##0 03/18/17 07/21/24 Rx
apixaban 5 mg tablet (Eliquis) 5 mg PO BID 09/16/23 07/21/24 History
empagliflozin 25 mg tablet 25 mg PO DAILY 09/16/23 07/20/24 History
(Jardiance)
ezetimibe 10 mg tablet 10 mg PO HS 09/16/23 07/21/24 History
icosapent ethyl 1 gram capsule 2 g PO BID 09/16/23 07/21/24 History
insulin aspart U-100 100 unit/mL 10 unit SC TID 09/16/23 07/21/24 History
subcutaneous solution (Novolog
U-100 Insulin aspart)
insulin glargine 100 unit/mL 25 unit SC QPM 09/16/23 07/21/24 History
subcutaneous cartridge
omega 4-dvw-hvz-fish oil 1,200 mg 1 cap PO DAILY 09/16/23 07/21/24 History
(144 mg-216 mg) capsule (Fish Oil)
pantoprazole 40 mg tablet,delayed 40 mg PO DAILY 09/16/23 07/21/24 History
release
rosuvastatin 20 mg tablet 20 mg PO HS 09/16/23 07/21/24 History
carvedilol 25 mg tablet 25 mg PO BID 07/20/24 07/21/24 History
sacubitril 49 mg-valsartan 51 mg 1 tab PO DAILY 07/20/24 07/21/24 History
tablet (Entresto)
amoxicillin 500 mg-potassium 1 tab PO Q12H #14 tabs 07/21/24 Rx
clavulanate 125 mg tablet
(Augmentin)
Review of Systems
-
History Source: Patient
All other systems: Negative unless noted
Constitutional: No Symptoms
EENT: No Symptoms
Respiratory: No Symptoms
Cardiac: No Symptoms
Abdomen/GI: No Symptoms
: No Symptoms
Musculoskeletal: Muscle Pain (left calf)
Skin: No Symptoms
Neurological: No Symptoms
Endocrine: No Symptoms
Hematologic/Lymphatic: No Symptoms
Physical Exam
Vital Signs
Temp Pulse Resp BP Pulse Ox
98.3 F 92 20 93/55 94
07/26/24 06:48 07/26/24 07:33 07/26/24 07:33 07/26/24 07:32 07/26/24 07:27
Physical Exam
General: Well Developed, Well Nourished, No Apparent Distress and Comfortable
HEENT: Normocephalic, Anicteric and Moist Mucous Membranes
Respiratory: Clear and Non Labored Respirations
Cardiac: S1/S2 and Regular Rhythm
Breast: Deferred by me
GI: Soft, Non Tender and Non Distended
Rectal: Deferred by Provider
Genito-urinary: No Costovertebral Tender
Musculoskeletal: No Clubbing, No Cyanosis and No Edema
Skin: Warm and Dry
Neuro: AO x 3
Hematologic/Lymphatic: No Lymphadenopathy
Psych: Calm
Impression / Plan
-
IMPRESSION/PLAN: 69M with ischemic cardiomyopathy (recovered), Medtronic BiV ICD, type 2 diabetes mellitus, coronary artery disease, paroxysmal atrial fibrillation (on apixaban), dyslipidemia, and prior subdural hematoma s/p craniotomy and
evacuation (2019), who presented to the emergency department with a chief complaint of cold foot and foot pain post angioplasty/
Primary suspension cord tier: Dr. Gray
Preop risk assessment: LLE Bypass by Dr. Davis 07/27/2024
-Not in current HF
-No anginal complaints
-Activity limited by claudication
-Pre op EKG, update TTE
Ischemic cardiomyopathy, recovered
-Update TTE, LVEF 35% in 2017 - recovered
-Continue GDMT
-Trend daily weight, I/O
Paroxysmal atrial fibrillation
-Not on telemetry, interrogate device for recent episodes
-Oral Anticoagulation: Apixaban 5 mg twice daily, on hold pending procedure
-[id number]: score at least 4 (Heart failure, Diabetes Mellitus, Vascular disease, age 65-74)
CAD
-Stable without chest pain, continue ASA
-TRINH to LAD and OM in 2017
PAD, chronic, LLE bypass tomorrow as above
Dyslipidemia, LDL above goal at 90 in 2022, fasting lipid panel in a.m.
LBBB, chronic
Type 2 diabetes mellitus, HgbA1c 9.6% in 2022, update
Medtronic BiV ICD, will interrogate device
Former smoker, continued cessation recommended
Data Reviewed
-
EKG: Report Reviewed by me
Labs: Labs Reviewed by me
Old Records: Reviewed
[2024-07-26 08:19] LABS: % Basophils 0.4 % (0-2); % Eosinophils 1.5 % (0-6); % Immature Granulocytes 0.2 % (0-0.5); % Lymphocytes 15.2 % (20.5-51.1); % Monocytes 10.2 % (1.7-9.3); % Neutrophils 72.5 % (42.2-75.2); Absolute Eosinophils 0.1 10^3/uL (0-0.7); Absolute Lymphocytes 0.7 10^3/uL (1.2-3.4); Absolute Monocytes 0.5 10^3/uL (0.1-0.6); Absolute Neutrophils 3.5 10^3/uL (1.4-6.5); Hematocrit 41.2 % (39.0-52.0); Mean Corpuscular Hgb 29.8 pg (27.0-31.0); Mean Corpuscular Volume 87.7 fL (80.0-94.0); Mean Platelet Volume 9.7 fL (7.4-10.4); Nucleated Red Blood Cells % 0 % (-); Platelet Count 151 10^3/uL (130-400); Red Cell Dist. Width 14.5 % (11.5-14.5); White Blood Cell Count 4.8 10^3/uL (4.8-10.8)
[2024-07-26 08:24] LABS: INR 1.12; PT 14.7 Sec (11.4-14.6)
[2024-07-26 08:25] LABS: APTT 28.4 Sec (23.4-35.0)
[2024-07-26 08:41] LABS: Blood Urea Nitrogen 23 mg/dl (9-20); Calcium 8.8 mg/dl (8.4-10.2); Carbon Dioxide 20 mmol/L (22-30); Chloride 98 mmol/L (98-107); Estimated Creatinine Clearance 69 ml/min; Glucose 384 mg/dl (70-99); Potassium 4.3 mmol/L (3.5-5.1); Sodium 132 mmol/L (135-145); eGFR > 60.00
[2024-07-26 11:32] LABS: Glycohemoglobin (HgbA1c) 10.4 % (4.0-5.6)
[2024-07-26] MEDS: HEPARIN 25000 UNITS/250 ML IV (11:47)
[2024-07-26 13:26] LABS: Glucose - Point of Care 314 mg/dl (70-99)
[2024-07-26] MEDS: NOVOLOG FLEXPEN 10 UNITS SC ×2 (13:30→16:14)
--- NOTE | 2024-07-26 15:13 | HPS.HSE ---
Family Physician
-
Family Physician: Félix Moraes
Chief Complaint
-
Left lower extremity pain and coldness
History of Present Illness
Mr. Oseguera is a 69-year-old male with a medical history of peripheral vascular disease (recent left pop angioplasty 07/21/2024), ischemic cardiomyopathy (recovered LVEF, ICD in place), paroxysmal A-fib (on Eliquis), subdural hematoma (s/p
craniotomy and evacuation 2018), and insulin-dependent diabetes mellitus who presented with left leg and foot pain and coldness. After his recent procedure his left leg (mostly lateral calf) pain returned and he reported intermittent coldness in
his left foot. His vascular surgical team recommended he present to the emergency department for further evaluation. He is planned for OR tomorrow 07/27 with vascular surgery for left lower extremity bypass surgery.
Medical History
Past Medical History
Past Medical History: Reports Arrhythmia (Paroxysmal A-fib), CAD, CHF (Recovered ejection fraction), CVA (Subdural hematoma status postcraniotomy and evacuation 2018) and IDDM
Past Surgical History: Reports Brain (Craniotomy and evacuation 2018) and Other (Left popliteal balloon angioplasty 07/21/2024)
Social History
Tobacco: Former Smoker
Alcohol: None
Drug: None
Personal:
Living: With Family
Employment: Retired
Family History
Family History: Not pertinent
Allergies / Home Medications
Allergies reflects when Allergies were last updated in [employer].
Home Medications with original date entered in [employer]
Allergy/Medication List:
Review of Systems
-
History Source: Patient
A 12 point ROS was completed and negative except as noted: Yes
Constitutional: Reports No Symptoms
EENT: Reports Runny Nose
Musculoskeletal: Reports Muscle Pain (Left calf and foot pain)
Physical Exam
Vital Signs
Vital Signs
Temp Pulse Resp BP Pulse Ox
98.3 F 68 19 114/67 96
07/26/24 07:44 07/26/24 12:15 07/26/24 12:15 07/26/24 12:00 07/26/24 12:15
Physical Exam
General: No Apparent Distress
Laboratory Results
-
07/26/24 07:48
07/26/24 07:48
Laboratory Results
PT 14.7 Sec (11.4-14.6) H 07/26/24 07:48
INR 1.12 07/26/24 07:48
APTT 28.4 Sec (23.4-35.0) 07/26/24 07:48
Impression/Plan
-
Gen-AAOx3, NAD
HEENT-NC, AT, anicteric, clear oral mm
Neck-supple
CV-reg, no M, +S1/S2
Lungs-clear B/L
Abd-soft, NT, ND
Musculoskeletal-no edema, no deformity
Skin-warm and dry
Neuro-grossly non-focal
Psych-calm, cooperative
Mr. Oseguera is a 69-year-old male with a medical history of peripheral vascular disease (recent left pop angioplasty 07/21/2024), ischemic cardiomyopathy (recovered LVEF, ICD in place), paroxysmal A-fib (on Eliquis), subdural hematoma (s/p
craniotomy and evacuation 2018), and insulin-dependent diabetes mellitus who presented with left leg and foot pain and coldness. After his recent procedure his left leg (mostly lateral calf) pain returned and he reported intermittent coldness in
his left foot. His vascular surgical team recommended he present to the emergency department for further evaluation. He is planned for OR tomorrow 07/27 with vascular surgery for left lower extremity bypass surgery.
Peripheral arterial disease:
-Worsening left calf pain following recent left popliteal angioplasty 07/21/2024
-Plan for OR with vascular surgery tomorrow 07/27
-Holding Eliquis preoperatively, continuing home aspirin
-Cardiology following for preoperative evaluation, ICD to be interrogated
Ischemic cardiomyopathy with recovered ejection fraction:
-Will continue GDMT with Entresto, carvedilol, p.o. Lasix daily, and spironolactone
IDDM:
-Continue home regimen of long and short acting insulin, additional sliding scale as needed
-Continue home Jardiance and metformin
Paroxysmal A-fib:
-Currently rate controlled
-Continue beta-blockade with carvedilol
-Holding Eliquis perioperatively
CODE STATUS: Full code
[2024-07-26] MEDS: AUGMENTIN 500 MG/125 MG 1 TABLET PO (15:32)
[2024-07-26 16:06] LABS: Glucose - Point of Care 291 mg/dl (70-99)
[2024-07-26] MEDS: NOVOLOG FLEXPEN-LOW RESISTANCE 3 UNITS SC (16:14)
[2024-07-26] MEDS: GLUCOPHAGE 1000 MG PO (18:17)
--- NOTE | 2024-07-26 18:41 | PTCARENOTE ---
Received the patient from the ED in a stretcher. The patient is aaox3, vss, 94% on RA. 100% v-pacing on the monitor. He ambulated to the bed without difficultly. Heparin gtt is running at 1600 units/hr. A positive left tibial pulse was noted by
Doppler. He states that his left ruiz and foot feel like 'fire' and rates it a 9/10 on scale. I oriented him to his room,. His call moreno is within reach.
[2024-07-26 19:43] LABS: APTT 61.3 Sec (23.4-35.0)
[2024-07-26 20:37] LABS: Glucose - Point of Care 207 mg/dl (70-99)
[2024-07-26] MEDS: COREG 25 MG PO (20:51)
[2024-07-26] MEDS: LANTUS 0.2 UNITS SC (20:52)
[2024-07-26] MEDS: VITAMIN B-12 100 MCG PO (20:52)
[2024-07-26] MEDS: CRESTOR 40 MG PO (20:52)
[2024-07-26] MEDS: ZETIA 10 MG PO (20:52)
[2024-07-26] MEDS: ENTRESTO 49 MG/51 MG 1 TAB PO (20:52)
[2024-07-27] VITALS (21 sets, daily range): BP systolic 107–145; BP diastolic 59–79; BMI 30.8
--- NOTE | 2024-07-27 01:18 | PTCARENOTE ---
Assumed care of the pt @ 1900. AAOx3 A-V Paced on the monitor VSS Left PT pulse by doppler . Heparin gtt infusing @ 1700 units/HR. Pt was clipped and CHG bath done. Call moreno within reach
[2024-07-27] MEDS: HEPARIN 25000 UNITS/250 ML IV (02:24)
[2024-07-27] MEDS: AUGMENTIN 500 MG/125 MG 1 TABLET PO ×2 (02:26→20:17)
[2024-07-27 03:18] LABS: Hematocrit 39.8 % (39.0-52.0); Hemoglobin 13.5 g/dL (13.0-18.0); Mean Corp Hgb Conc. 33.9 g/dL (33.0-37.0); Mean Corpuscular Hgb 30.3 pg (27.0-31.0); Mean Corpuscular Volume 89.2 fL (80.0-94.0); Mean Platelet Volume 10.2 fL (7.4-10.4); Platelet Count 151 10^3/uL (130-400); Red Blood Cell Count 4.46 10^6/uL (4.70-6.10); Red Cell Dist. Width 14.3 % (11.5-14.5); White Blood Cell Count 4.9 10^3/uL (4.8-10.8)
[2024-07-27 03:31] LABS: APTT 92.4 Sec (23.4-35.0)
[2024-07-27 03:48] LABS: Blood Urea Nitrogen 22 mg/dl (9-20); Calcium 8.7 mg/dl (8.4-10.2); Carbon Dioxide 22 mmol/L (22-30); Chloride 103 mmol/L (98-107); Estimated Creatinine Clearance 84 ml/min; Glucose 189 mg/dl (70-99); HDL Cholesterol 35 mg/dl; LDL Cholesterol, Calculated 32 mg/dl; Potassium 4.4 mmol/L (3.5-5.1); Sodium 136 mmol/L (135-145); Total Cholesterol 101 mg/dl (50-199); Triglyceride 172 mg/dl (10-149); Very Low Density Lipoprotein 34 mg/dl (0-30); eGFR > 60.00
[2024-07-27 08:38] LABS: Glucose - Point of Care 149 mg/dl (70-99)
[2024-07-27] MEDS: NOVOLOG FLEXPEN SC ×3 (08:39→19:22)
[2024-07-27] MEDS: NOVOLOG FLEXPEN-LOW RESISTANCE SC ×3 (08:40→19:22)
[2024-07-27] MEDS: COREG 25 MG PO ×2 (08:41→20:17)
[2024-07-27] MEDS: ENTRESTO 49 MG/51 MG 1 TAB PO ×2 (08:41→20:19)
[2024-07-27] MEDS: FARXIGA 10 MG PO (08:41)
[2024-07-27] MEDS: ALDACTONE 12.5 MG PO (08:42)
[2024-07-27] MEDS: GLUCOPHAGE 1000 MG PO (08:42)
[2024-07-27] MEDS: LASIX 40 MG PO (08:43)
[2024-07-27] MEDS: PROTONIX 40 MG PO (08:43)
[2024-07-27] MEDS: ASPIR LOW (ENTERIC COATED) 81 MG PO (08:43)
--- NOTE | 2024-07-27 10:09 | W.PN.UPDATE ---
Update Note
Progress Note Update
Seen and evaluated. No change in his symptoms. Still with left calf pain and foot numbness. Motor function fully intact. Exam is stable. Discussed plan with patient for revascularization today. Discussed procedure and technical aspects of the
procedure. Discussed anticipated recovery/outcome. Discussed hopefully resolution of his numbness symptoms, but potential for continued symptoms. Discussed risks of procedure including but not limited to bleeding, infections, repeated thrombotic
or acute limb ischemic events or worsen limb ischemia. He understands all these things and wishes to proceed. Will plan left lower extremity arterial bypass today.
--- NOTE | 2024-07-27 10:28 | PTCARENOTE ---
Assumed care of pt from night RN. Pt received awake and alert, Ox3. VSS, CM shows 100% A/V pacing 60's, POX 95% on RA. Pt remains NPO for LLE bypass this pm. Heparin D/c'd as ordered at 0700 in prep for Sx. Left foot is cool to touch, no DP
found with dopp, but Post Tib present with dopp. He denies any pain or discomfort at this time, Dr. Davis in to see pt pre-op, all questions answered.
[2024-07-27 12:22] LABS: Glucose - Point of Care 117 mg/dl (70-99)
[2024-07-27] MEDS: BACTROBAN 2% OINTMENT 1 APPLIC NASAL (12:24)
[2024-07-27] MEDS: PERIDEX 0.12% ORAL RINSE 15 ML PO (12:25)
--- NOTE | 2024-07-27 12:45 | PTCARENOTE ---
2nd CHG bath performed, Bactroban and Peridex given as per AUG, pt sent to OR
--- NOTE | 2024-07-27 15:20 | W.PN.HOSP.TC ---
Today's Communication/Plan
-
Assessment / Plan
Assessment / Plan
Gen-AAOx3, NAD
HEENT-NC, AT, anicteric, clear oral mm
Neck-supple
CV-reg, no M, +S1/S2
Lungs-clear B/L
Abd-soft, NT, ND
Musculoskeletal-no edema, no deformity
Skin-warm and dry
Neuro-grossly non-focal
Psych-calm, cooperative
Mr. Oseguera is a 69-year-old male with a medical history of peripheral vascular disease (recent left pop angioplasty 07/21/2024), ischemic cardiomyopathy (recovered LVEF, ICD in place), paroxysmal A-fib (on Eliquis), subdural hematoma (s/p
craniotomy and evacuation 2018), and insulin-dependent diabetes mellitus who presented with left leg and foot pain and coldness. After his recent procedure his left leg (mostly lateral calf) pain returned and he reported intermittent coldness in
his left foot. His vascular surgical team recommended he present to the emergency department for further evaluation. He is planned for OR tomorrow 07/27 with vascular surgery for left lower extremity bypass surgery.
Peripheral arterial disease:
-Worsening left calf pain following recent left popliteal angioplasty 07/21/2024
-Plan for OR with vascular surgery today 07/27
-Holding Eliquis preoperatively, continuing home aspirin
-Cardiology following for preoperative evaluation
Ischemic cardiomyopathy with recovered ejection fraction:
-Will continue GDMT with Entresto, carvedilol, p.o. Lasix daily, and spironolactone
IDDM:
-Continue home regimen of long and short acting insulin, additional sliding scale as needed
-Continue home Jardiance and metformin
Paroxysmal A-fib:
-Currently rate controlled
-Continue beta-blockade with carvedilol
-Holding Eliquis perioperatively
CODE STATUS: Full code
Anticipated Discharge: 24 - 48 hours
Subjective/Interval History
-
Date of Service: July 27, 2024
Patient was seen and examined while resting comfortably in bed this morning. Awaiting OR this afternoon with vascular surgery for intervention on his left lower extremity.
Objective Data
-
Labs:
Laboratory Results
07/27/24 07/27/24
02:39 09:30
APTT 92.4 H Cancelled
Sodium 136
Potassium 4.4
Chloride 103
Carbon Dioxide 22
BUN 22 H
Creatinine 0.9
Glucose 189 H
Calcium 8.7
Vital Signs:
Vital Signs
Temp Pulse Resp BP Pulse Ox
97.7 F 62 16 115/68 94
07/27/24 12:52 07/27/24 12:52 07/27/24 12:52 07/27/24 12:52 07/27/24 12:52
Review of Systems
-
History Source: Patient
All other systems: Reviewed and negative
Musculoskeletal: Reports Muscle Pain (Left calf pain)
Physical Exam
-
General: No Apparent Distress
[2024-07-27 16:26] LABS: Glucose - Point of Care 131 mg/dl (70-99)
--- NOTE | 2024-07-27 16:56 | CM ---
CM following for DC planning needs.
Met w/ patient this AM prior to surgery to complete initial assessment.
Pt. indicates that he resides in a 2st apartment w/ spouse. He is functionally indep/ w ADLs, mobility with use of a RW and SPC PRN.
Pt. has RX plan and uses [facility]
Antic. DC to home once stable.
Will follow.
--- NOTE | 2024-07-27 17:56 | OR.RPT ---
Operative Report
Operative Report
PROCEDURE DATE: 07/27/2024
Preoperative diagnosis:
1. Severe peripheral arterial disease status post left lower extremity angioplasty/stenting.
2. Subacute left limb ischemia with thrombosis of left popliteal stent.
Postoperative diagnosis: Same
Procedure: Left femoral (superficial femoral artery) to posterior tibial artery bypass with ipsilateral nonreversed greater saphenous vein conduit.
Surgeon: [facility] Associate: KIMMIE Cowart, required for all aspects of procedure including assistance with traction/countertraction, following of suture line.
Complications: None
Anesthesia: General
Indications for procedure:
Patient with history of left lower extremity popliteal stent and SFA stents prior to my meeting him. Had developed in-stent restenosis with severe claudication. Was brought for angiogram/angioplasty. Angiogram had demonstrated severe popliteal
restenosis with reasonable angiographic result, but still some residual waist and angioplasty balloon due to recalcitrant lesion. Had counseled patient and discussed potential need for staged bypass. Had even discussed preangiographically with
patient potential bypass is a better solution. However patient had been quite adamant against bypass. However he now presented with subacute symptoms of limb ischemia. Exam and noninvasive studies as well as CT angiogram confirmed findings of
thrombosed popliteal stent. Therefore recommended at this time definitively bypass with the patient. Risk/benefits/alternatives also discussed. Patient understood all wished to proceed.
Description of procedure:
Patient was identified brought to the operating room placed on the table in supine position. After the adequate administration of anesthesia he was prepped and draped in the standard surgical fashion. A standard preoperative timeout was undertaken
and everybody was in agreement the plan. A longitudinal incision was made in the mid anterior medial thigh that was carried through skin subcutaneous tissue. The sartorius muscle was identified and reflected anterolaterally. The superficial
femoral artery was identified and carefully dissected away from surrounding structures and great care waiting to the structures. Vesseloops passed around proximally distally. The exposure site was intentionally proximal to the proximal SFA stent.
Now, I made a longitudinal incision in the medial mid calf about 1 fingerbreadth inferior to the tibia. This was carried through skin subcutaneous tissue. The greater saphenous vein was identified (I had marked the positioning of the vein using
ultrasound prior to prepping and draping). I carefully dissected it within the field here, any branches were ligated between silk ties and divided. I then mobilized it inferiorly. I then used electrocautery to dissect through the crural fascia
layer. I then identified the soleus muscle and divided the soleus muscle just inferior to its attachment to the tibia. I then incised the deeper fascial layer thereby entering the deep posterior compartment. The posterior tibial vein was easily
identified. I reflected this anteriorly and then identified the posterior tibial artery. It was noted to have eccentric calcification, but was reasonably soft and I felt suitable target for bypass. Doppler confirmed good signal. I carefully
dissected it for a suitable segment. I gently passed Vesseloops around it proximally and distally. This was done after careful circumferential dissection only in the proximal and distal extent.
Now that I had proximal and distal arterial exposure, I continue my dissection of the greater saphenous vein. I extended the incision to the vicinity of the knee thereby mobilizing the saphenous vein to that level. I then made a skip incision and
then continued incision in the thigh. This is carried all the way up to the thigh until I had a suitable length of greater saphenous vein identified. I then mobilized the entirety of the greater saphenous vein out of its bed. Any branches were
ligated between silk ties and clips and then divided. Once I mobilized the suitable segment I used a 2-0 silk suture ligature proximally to ligate the vein and placed clips. I then transected. Distally I ligated the vein with heavy silk tie and a
clip. I now distended the vein under heparinized saline. It distended very well.
At this point I then used a Michelle tunneler to create a subsartorial tunnel. Just below the knee the Michelle tunneler popped past the sartorius insertion site into the subcutaneous space and then I guided the tunneler again just subfascially to
the distal arterial exposure site. I flexed and extended the knee to confirm there is no tethering or compression or kinking within that tunnel there. I was very satisfied. Now I gave the patient 7000 units of intravenous heparin. Once this had
circulated for 3 minutes, I tightened my double looped Vesseloops on the SFA proximally distally. I then made an arteriotomy with an 11 blade and extended using a Crowder scissor. There was mild eccentric calcified plaque in the SFA but no luminal
stenosis, and the plaque was relatively soft. At this point I spatulated the vein maintaining a nonreversed orientation. I then sewed an end-to-side anastomosis using a running 6-0 Prolene suture. I completed and tied down my suture line. Next I
released flow in the [place] artery system. Hemostasis was noted along the suture line. I now used a [employer] valvulotome to valvulotomy as the vein. I ran the valvulotome through twice to confirm no retained valves. There is now excellent pulsatile
flow. I then marked the anterior surface under distention to avoid any kinking or twisting and then passed it through my tunnel. I placed a bulldog clamp on the distal aspect of the vein graft.
Now I reexposed the posterior tibial artery exposure site. I placed Yasargil clips proximally and distally on the posterior tibial artery to occlude the artery. I then made an arteriotomy in the posterior tibial artery with a [place] blade and
extended using a micro Crowder scissor. While there was some mild eccentric calcified plaque (soft), there was widely patent lumen. At this point I trimmed and spatulated the vein graft and moved the bulldog clamp more cephalad. I then sewed an
end-to-side anastomosis between the vein graft and the posterior tibial artery using a running 7-0 Prolene suture. Prior to completing and tying down my suture line I backbled the [place] arteries and then flushed out the vein graft. I then
irrigated heparinized saline and completed and tied in my suture line. Note I had also used a fine right angle clamp as well as a 2 mm dilator to confirm the tail of the anastomosis to be widely patent. Next I released my proximal Yasargil clip on
the proximal posterior tibial artery and released the bulldog clamp on the vein graft. Hemostasis was noted on the suture line. I now released my outflow Yasargil clip. There is now pulsatile flow into the posterior tibial artery. Doppler
confirmed excellent significantly graft augmented signal in the posterior tibial artery distally anastomosis. I also confirmed similar Doppler signal in the posterior tibial artery at the ankle. At this point I was very satisfied. I now irrigated
all the incision sites. I gave some protamine to reverse the heparin. A single 6-0 Prolene [id number] type stitch was placed on the suture line at the proximal anastomosis and hemostasis was then fully noted. I irrigated again and confirmed
full hemostasis throughout all the jones. I then closed the saphenectomy incision with 2-0 Vicryl running suture followed by 3-0 Vicryl deep dermal running suture followed by 4-0 Monocryl running subcuticular stitch. The proximal and distal
arterial exposure sites were then closed with Vicryl layers as well with Monocryl subcuticular stitch similarly. Dermabond was applied to all incision sites. Aquacel dressings were also applied. The patient tolerated procedure well. Upon
completion he had a palpable posterior tibial pulse on the foot. The patient tolerated procedure well. He was extubated and taken recovery room in stable condition. All sponge, needle, and instrument counts were correct at the end of the case.
[2024-07-27 17:59] LABS: Glucose - Point of Care 158 mg/dl (70-99)
[2024-07-27 18:25] LABS: Hematocrit 41.3 % (39.0-52.0); Mean Corp Hgb Conc. 33.9 g/dL (33.0-37.0); Mean Corpuscular Hgb 30.4 pg (27.0-31.0); Mean Corpuscular Volume 89.8 fL (80.0-94.0); Mean Platelet Volume 9.7 fL (7.4-10.4); Platelet Count 158 10^3/uL (130-400); Red Cell Dist. Width 14.5 % (11.5-14.5); White Blood Cell Count 10.1 10^3/uL (4.8-10.8)
[2024-07-27 18:33] LABS: INR 1.02
[2024-07-27 18:34] LABS: APTT 27.3 Sec (23.4-35.0)
[2024-07-27 18:35] LABS: Blood Urea Nitrogen 24 mg/dl (9-20); Calcium 8.5 mg/dl (8.4-10.2); Carbon Dioxide 17 mmol/L (22-30); Chloride 106 mmol/L (98-107); Estimated Creatinine Clearance 75 ml/min; Glucose 170 mg/dl (70-99); Potassium 4.3 mmol/L (3.5-5.1); Sodium 138 mmol/L (135-145); eGFR > 60.00
[2024-07-27] MEDS: MORPHINE SULFATE 2 MG IV (19:04)
[2024-07-27] MEDS: AUGMENTIN 500 MG/125 MG PO (19:22)
[2024-07-27] MEDS: GLUCOPHAGE PO (19:23)
[2024-07-27] MEDS: NSS 1000 IV (19:30)
--- NOTE | 2024-07-27 20:00 | PTCARENOTE ---
pt arrived to floor at change of shift from PACU, pt AAOx3, c/o 04/07 pain to LLE, PRN meds given see MAR, paced on the monitor, HR in the 70s, 94% RA, denies SOB, pt tolerating clear liquid diet, zhou in place for critical Is and Os, LLE dressing
C/D/I, no drainage noted, pt has + pulses with doppler to LLE, bedrest overnight, call moreno in reach.
[2024-07-27] MEDS: CRESTOR 40 MG PO (20:18)
[2024-07-27] MEDS: VITAMIN B-12 100 MCG PO (20:18)
[2024-07-27] MEDS: ZETIA 10 MG PO (20:19)
[2024-07-27] MEDS: ROXICODONE 5 MG PO (20:24)
[2024-07-27] MEDS: LANTUS 0.2 UNITS SC (21:28)
[2024-07-27 21:37] LABS: Glucose - Point of Care 236 mg/dl (70-99)
[2024-07-28] VITALS (21 sets, daily range): BP systolic 99–146; BP diastolic 45–101; BMI 31.7
--- NOTE | 2024-07-28 | PTCARENOTE ---
pt pain has improved with medications see MAR, +pulses with doppler, call moreno in reach
--- NOTE | 2024-07-28 02:21 | W.PN.UPDATE ---
Update Note
Progress Note Update
0215- Patient's SBP 90s, Map 50s; Dr. Tai, vascular surgeon updated.
--- NOTE | 2024-07-28 02:28 | PTCARENOTE ---
Pt BP soft MAPs 55-68, TENT FINISHER and Vascular made aware, +pulses, no new orders at this time, pt is asymptomatic, call moreno in reach
[2024-07-28] MEDS: NSS 1000 IV ×2 (03:06→16:23)
--- NOTE | 2024-07-28 03:23 | PTCARENOTE ---
no changes from prior assessment, call moreno in reach, pt unable to sleep, resting in bed
[2024-07-28 04:25] LABS: Hematocrit 38.1 % (39.0-52.0); Hemoglobin 13.1 g/dL (13.0-18.0); Mean Corp Hgb Conc. 34.4 g/dL (33.0-37.0); Mean Corpuscular Hgb 30.5 pg (27.0-31.0); Mean Corpuscular Volume 88.6 fL (80.0-94.0); Mean Platelet Volume 10.2 fL (7.4-10.4); Platelet Count 167 10^3/uL (130-400); Red Cell Dist. Width 14.1 % (11.5-14.5); White Blood Cell Count 6.6 10^3/uL (4.8-10.8)
[2024-07-28 04:31] LABS: INR 1.02
[2024-07-28 04:32] LABS: APTT 25.9 Sec (23.4-35.0)
[2024-07-28 04:52] LABS: Blood Urea Nitrogen 27 mg/dl (9-20); Calcium 7.7 mg/dl (8.4-10.2); Carbon Dioxide 11 mmol/L (22-30); Chloride 104 mmol/L (98-107); Estimated Creatinine Clearance 75 ml/min; Glucose 209 mg/dl (70-99); Potassium 4.4 mmol/L (3.5-5.1); Sodium 133 mmol/L (135-145); eGFR > 60.00
[2024-07-28] MEDS: ROXICODONE 5 MG PO ×2 (04:54→20:53)
[2024-07-28] MEDS: SODIUM BICARBONATE 1150 MEQ IV (06:17)
--- NOTE | 2024-07-28 07:21 | W.PN.VS ---
Addendum entered and electronically signed by Rosalio Davis MD 07/28/24 07:54:
Seen and examined with KIMMIE Cowart. Agree with findings as noted below. Patient is without significant complaints this morning except that he notes persistent numbness in his left foot (one of his preoperative complaints). Although he notes that
his foot feels much warmer. No weakness. No pain.
On exam/he is awake and alert. No acute distress. Left lower extremity dressings all clean dry and intact. Thigh and calf are both soft. Compartments left calf all soft. Left foot is warm! 2+ palpable PT pulse at the ankle/foot. Confirmed
with Doppler. Palpable graft pulse as well in the vicinity of the medial knee.
Labs reviewed.
Plan/as discussed and noted below. Unclear why bicarb/CO2 level still low on labs this morning. No signs of ongoing ischemia. No signs of compartment syndrome. Will repeat. Patient has received bicarb drip. Otherwise arterial line out, Zhou
out, out of bed to chair, okay to transfer or downgrade to telemetry level. Will likely resume Eliquis tonight (24 hours postop).
Original Note:
Today's Communication / Plan
-
Seen and assessed with Dr Davis
Assessment/Plan
-
POD 1 Left femoral (superficial femoral artery) to posterior tibial artery bypass with ipsilateral nonreversed greater saphenous vein conduit
Plan:
-DC jose elias
-DC zhou
-DC IVF
-Increase diet
-PO meds
-Eliquis tonight
-OOB/may stand to urinate. Plans for PT tomorrow am
Subjective Data
-
Date of Service: July 28, 2024
Patient seen and examined at bedside, does report continued left foot digit numbness but pain is improved and foot is markedly warmer. Denies nausea, vomiting, fever, and chills.
Objective Data
-
Vital Signs
Temp Pulse Resp BP Pulse Ox
97.4 F 64 20 122/67 95
07/28/24 03:22 07/28/24 06:00 07/28/24 06:00 07/28/24 06:00 07/28/24 06:00
Intake and Output
07/27/24 07/28/24 07/29/24
06:59 06:59 06:59
Intake Total 1350 / 1350
Output Total 1425 / 1425
Balance -75 / -75
Intake:
Oral fluids 400 / 400
IV fluids (Total) 950 / 950
nss 950 / 950
Output:
Urine, Zhou 400 / 400
Urine, Voided 1025 / 1025
Other:
Number of approximated MODERATE 1
amounts of urine
Lab Results
07/28/24 04:06
07/28/24 04:06
Calcium 7.7 mg/dl (8.4-10.2) L 07/28/24 04:06
Physical Exam
-
AAOX3
No tachypnea
No tachycarida
Abd soft, nontender
LLE dressings all dry and intact
Compartments soft
Palpable PT
BL feet warm
--- NOTE | 2024-07-28 08:05 | PN.CDI ---
CDI
- -
CDI:
Physician Documentation Request
Admit Date: 07/26/24 09:23
Dear Cardiology,
Please review the following and provide your response in the progress notes.
Clinical Indicators:
The diagnosis of CHF was documented on 07/26 Cardiology note but is not consistently noted in subsequent documentation.
- 07/26 Cardiology indicates pmh CHF
- 'Not in current HF'
- 'Ischemic cardiomyopathy, recovered'
- 07/26 Echo EF 65-70%
- Diastolic function indeterminate
Please clarify the following:
____ - Chronic HFpEF was present on admission and is now resolved.
____ - Chronic HFpEF was ruled out
____ - Chronic HFpEF is still a likely, suspected, probable diagnosis
____ - Other
Use of terms such as suspected, likely, concern for, or probable (associated with a specific diagnosis that is being evaluated, monitored, or treated as if it exists) are acceptable and can be coded in the inpatient setting, when documented at the
time of discharge.
Thank you,
Eladio Weiss RN
CDI Specialist
Please use your independent medical judgment in providing your response.
[2024-07-28 08:06] LABS: Glucose - Point of Care 199 mg/dl (70-99)
[2024-07-28] MEDS: LASIX 40 MG PO (08:08)
[2024-07-28] MEDS: GLUCOPHAGE 1000 MG PO ×2 (08:08→17:50)
[2024-07-28] MEDS: ASPIR LOW (ENTERIC COATED) 81 MG PO (08:08)
[2024-07-28] MEDS: AUGMENTIN 500 MG/125 MG 1 TABLET PO (08:08)
--- NOTE | 2024-07-28 08:08 | CON.INTV ---
Consultation
Consultation Request
Date/Time Consultation Requested: 07/28
Date/Time Consultation Performed: 07/28
Reason for Consultation: Critical care
Medical History
-
History of Present Illness:
History obtained from the patient but also from the chart. 69-year-old male with history of poorly controlled diabetes, coronary disease, peripheral vascular disease, cardiomyopathy, biventricular ICD, atrial fibrillation who brought himself into
[facility] 07/26/2024 with left leg pain and cold foot. He had a balloon angioplasty of in-stent restenosis of left popliteal artery 07/21/2024. Patient now underwent left femoral to posterior tibial artery bypass with ipsilateral
nonreversed greater saphenous vein conduit on 07/27 without complication. Presently he is feeling well but does still have some tingling in his toes but pain is improved. Denies shortness of breath, nausea, abdominal pain, chest pain. Of note
blood sugars are elevated and serum bicarbonate is decreasing.
.
PMH: Hypertension, hyperlipidemia, atrial fibrillation on anticoagulation, history of ischemic cardiomyopathy with coronary disease, diabetes, history of subdural hematoma with craniotomy and evacuation 2018
Past Medical History
Past Medical History: None (See above)
Past Surgical History: None (See above)
Social History
Tobacco: Former Smoker ([id number], quit 2014)
Alcohol: None
Drug: None
Personal:
Living: With Family
Employment: Retired
Family History
Family History: Reviewed & Not Pertinent
Allergies / Home Medications
Allergies
Allergy/AdvReac Type Severity Reaction Status Date / Time
No Known Allergies Allergy Verified 07/21/24 07:54
Home Medications
�Medication �Instructions �Recorded �Confirmed �Last Taken �Type
aspirin 81 mg tablet,delayed 81 mg PO DAILY Blood Clot 03/17/17 07/26/24 07/25/24 History
release Prevention/Tx
furosemide 40 mg tablet 40 mg PO DAILY Fluid 03/17/17 07/26/24 07/25/24 History
Retention/Swelling
spironolactone 25 mg tablet 12.5 mg PO DAILY Heart Failure 03/17/17 07/26/24 07/25/24 History
empagliflozin 25 mg tablet 25 mg PO DAILY Diabetes/ HEART 09/16/23 07/26/24 07/25/24 History
(Jardiance) FAILURE
ezetimibe 10 mg tablet 10 mg PO HS High Cholesterol 09/16/23 07/26/24 07/25/24 History
icosapent ethyl 1 gram capsule 2 g PO BID High Cholesterol 09/16/23 07/26/24 07/25/24 History
insulin aspart U-100 100 unit/mL 10 unit SC AC Diabetes 09/16/23 07/26/24 07/25/24 History
subcutaneous solution (Novolog
U-100 Insulin aspart)
insulin glargine 100 unit/mL 20 unit SC HS Diabetes 09/16/23 07/26/24 07/25/24 History
subcutaneous cartridge
pantoprazole 40 mg tablet,delayed 40 mg PO DAILY Gastrointestinal 09/16/23 07/26/24 07/25/24 History
release Issue
rosuvastatin 20 mg tablet 40 mg PO HS High Cholesterol 09/16/23 07/26/24 07/25/24 History
carvedilol 25 mg tablet 25 mg PO BID Blood Pressure 07/20/24 07/26/24 07/25/24 History
sacubitril 49 mg-valsartan 51 mg 1 tab PO BID Heart Failure 07/20/24 07/26/24 07/25/24 History
tablet (Entresto)
amoxicillin 500 mg-potassium 1 tab PO Q12 Infection 07/26/24 07/26/24 07/25/24 History
clavulanate 125 mg tablet
(Augmentin)
apixaban 5 mg tablet (Eliquis) 5 mg PO BID Blood Clot 07/26/24 07/26/24 07/25/24 History
Prevention/Tx
cyanocobalamin (vitamin B-12) 100 100 mcg PO HS Supplement 07/26/24 07/26/24 07/25/24 History
mcg tablet
metformin 1,000 mg tablet 1,000 mg PO BID@0800,1700 Diabetes 07/26/24 07/26/24 07/25/24 History
Review of Systems
-
All other systems: Negative unless noted
Vitals / Labs / Diagnostic Testing
Vital Signs
Temp Pulse Resp BP Pulse Ox
97.4 F 64 20 122/67 95
07/28/24 03:22 07/28/24 06:00 07/28/24 06:00 07/28/24 06:00 07/28/24 06:00
Lab Data
07/28/24 04:06
Laboratory Results
07/27/24 07/28/24
18:15 04:06
PT 14.0 14.0
INR 1.02 1.02
APTT 27.3 25.9
Diagnostic Testing:
Physical Exam
-
HEENT: Normocephalic and Anicteric
Cardiovascular: S1/S2, Regular Rhythm, Murmur (n), Rub (n) and Peripheral Edema (n)
Respiratory: Wheeze (n), Rales (n), Rhonchi (n) and Non-Labored Respirations
GI: Soft, Non Distended and Non Tender
Neurology: Awake, Alert, Oriented and Other (Cranial nerves intact)
Skin: Good Color and Other (Left lower extremity warm, palpable pulse, incision dressed)
General: Comfortable
Assessment
-
69-year-old male with history of peripheral vascular disease, with in-stent stenosis status post balloon angioplasty 07/21/2024, now presents with worsening leg pain and cold foot. He is status post left lower extremity bypass surgery 07/27/2024. We
are asked to help from critical care standpoint
S/P left femoral to posterior tibial artery bypass with ipsilateral nonreversed greater saphenous vein conduit
07/27/2024
Recent balloon angioplasty of in-stent restenosis of left popliteal artery 07/21/2024
Left lower extremity stent 2021
Hyperglycemia
Elevated anion gap
Mild aortic stenosis, valve area 1.9 cm�
PA pressure 35, per echo 07/26/2024
Conditions present prior to admission
Hypertension/hyperlipidemia
Coronary disease
LAD stent/left circumflex stent 2016
Hx of Left bundle branch block
History of ischemic cardiomyopathy
s/p BiV ICD, 2016
History of subdural hematoma status postcraniotomy, evacuation 2018
Atrial fibrillation on apixaban
[id number] history of smoking quit 2014
Plan/recommendations
At this time, patient is critically ill. He is stable, hemodynamically doing well post surgically. However elevated blood sugars are noted, serum bicarbonate decreased
Anion gap 19
Chest x-ray without acute findings
EKG AV paced rhythm
Left lower extremity warm, pulses intact. Patient complaining of some tingling. Incision appears to be intact, left groin intact
Moving forward
Continue with management per vascular surgery
aspirin, apixaban 5 mg twice a day
Given anion gap, hyperglycemia, decreasing her bicarbonate, patient may be developing DKA
We will continue with current IV fluids been transition to normal saline
May require intermittent boluses
Await noon BMP
Patient on metformin, insulin, Jardiance as outpatient
will request diabetic WOOD HACKER management assistance for hyperglycemia. May require insulin drip
Repeat metabolic panel in the p.m., await noon studies
Continue with sliding scale insulin
May need to adjust oral intake, n.p.o. depending on follow-up blood work
Reviewed with critical care nursing, respiratory care, pharmacy, case management
Reviewed with vascular surgery
TCCT 31 min
[2024-07-28] MEDS: ALDACTONE 12.5 MG PO (08:09)
[2024-07-28] MEDS: FARXIGA 10 MG PO (08:09)
[2024-07-28] MEDS: COREG 25 MG PO ×2 (08:09→20:53)
[2024-07-28] MEDS: ENTRESTO 49 MG/51 MG 1 TAB PO ×2 (08:09→20:54)
[2024-07-28] MEDS: PROTONIX 40 MG PO (08:09)
[2024-07-28] MEDS: NOVOLOG FLEXPEN-LOW RESISTANCE 1 UNITS SC (08:15)
[2024-07-28] MEDS: NOVOLOG FLEXPEN 10 UNITS SC ×2 (08:15→11:38)
--- NOTE | 2024-07-28 09:00 | PTCARENOTE ---
Assumed care at 0700. Vasc team to bedside. A-line removed as ordered. Pt requesting zhou to remain until after breakfast. Assessment as noted. Palpable pulses in affected leg, confirmed by doppler. Pt c/o continued numbness in toes. Pain 4/10,
requesting no meds at this time. Pt requesting to stay in bed until after breakfast as well. SW 150 HCO3 infusing at 100cc/h as ordered.
--- NOTE | 2024-07-28 10:31 | W.PN.CD ---
Today's Communication / Plan
-
-Appears to be relatively stable from a cardiac standpoint; no evidence of CHF on examination.
-Denies any anginal symptoms.
-Telemetry stable (paced).
-Continue management by Vascular Surgery.
-Cardiology will remain available on an as-needed basis.
Impression / Plan
-
IMPRESSION/PLAN: 69M with ischemic cardiomyopathy (recovered), [employer] BiV ICD, type 2 diabetes mellitus, coronary artery disease, paroxysmal atrial fibrillation (on apixaban), dyslipidemia, and prior subdural hematoma s/p craniotomy and
evacuation (2019), who presented to the emergency department with a chief complaint of cold foot and foot pain post angioplasty/
Primary energy trader: Dr. Gray
PAD s/p LLE Bypass by Dr. Davis 07/27/2024:
-Appears to be relatively stable from a cardiac standpoint; no evidence of CHF on examination.
-Denies any anginal symptoms.
-Telemetry stable (paced).
-Continue management by Vascular Surgery.
Ischemic cardiomyopathy with recovered (HFrecEF) status-post previous BiV ICD implantation:
-LVEF 35% in 2017 - recovered; EF 65-70% on TTE 07/26/2024.
-Continue GDMT with the Paglia flows and, spironolactone, carvedilol, and Entresto.
-Continue Lasix 40 mg PO daily.
Paroxysmal atrial fibrillation/BiV ICD:
-Stable, paced
-Oral Anticoagulation: on Apixaban 5 mg twice daily.
-[id number]: score at least 4 (Heart failure, Diabetes Mellitus, Vascular disease, age 65-74)
CAD
-Stable; denies any anginal symptoms.
-TRINH to LAD and OM in 2017
-Continue aspirin and high-dose rosuvastatin.
Dyslipidemia:
-LDL at goal (32).
-Continue high-dose rosuvastatin 40 mg daily.
LBBB, chronic:
-Currently stable.
Type 2 diabetes mellitus, HgbA1c 9.6% in 202, now up to 10.4%.
-Management as per primary team.
Mild aortic stenosis:
-Continue to monitor as outpatient.
Former smoker:
-Continued cessation recommended.
CDI:
____- Chronic HFpEF was present on admission and is now resolved.
____- Chronic HFpEF was ruled out
____- Chronic HFpEF is still a likely, suspected, probable diagnosis
_X___- Other: The patient has recovered ischemic cardiomyopathy (HFrecEF).
Physical Exam
Vital Signs/Labs
Vital Signs
Temp Pulse Resp BP Pulse Ox
97.8 F 68 13 123/45 96
07/28/24 08:00 07/28/24 10:30 07/28/24 10:30 07/28/24 10:00 07/28/24 10:30
07/27/24 07/28/24 07/29/24
06:59 06:59 06:59
Actual Weight 89.3 kg 91.7 kg
07/28/24 04:06
PT 14.0 Sec (11.4-14.6) 07/28/24 04:06
INR 1.02 07/28/24 04:06
APTT 25.9 Sec (23.4-35.0) 07/28/24 04:06
Triglycerides 172 mg/dl (10-149) H 07/27/24 02:39
LDL Cholesterol, Calc 32 mg/dl 07/27/24 02:39
VLDL Cholesterol, Calc 34 mg/dl (0-30) H 07/27/24 02:39
HDL Cholesterol 35 mg/dl 07/27/24 02:39
Physical Exam
Constitutional: No acute distress and Comfortable
EENT: Anicteric
Cardiovascular: Rhythm & rate is regular, Pedal edema present (Trace), Systolic murmur present (2/6) and S1S2 is normal
Respiratory: Respiratory effort normal and Rhonchi Present (Scant bibasilar rhonchi)
GI: Soft
Neuro/Psych: Alert
Other: Skin (Warm, dry, intact)
Data Reviewed
-
Date of Service: July 28, 2024
EKG: Tracing Personally Visualized and interpreted (Telemetry: Paced)
Echo: Tracing Personally Visualized and interpreted (EF 65-70%, mild aortic stenosis.)
Labs: Labs Reviewed by me
Total Time Spent with Patient (in minutes): Total time: 38 minutes
[2024-07-28] MEDS: NOVOLOG FLEXPEN-LOW RESISTANCE 4 UNITS SC ×2 (11:38→17:43)
[2024-07-28 11:44] LABS: Glucose - Point of Care 335 mg/dl (70-99)
--- NOTE | 2024-07-28 11:57 | CM ---
CM following re: discharge planning.
Reviewed pty's chart, met with pt.
Pt is POD 1 Left femoral (superficial femoral artery) to posterior tibial artery bypass, continue supporetive care.
Pt reports he was born and grew up in [place], immig[place] [facility] 20 years ago and resides with spouse in an apartment 1st floor, has 2 supportive children. 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
traveling all over [place], mostly [place] and [place]. Pt stated he has a house in [facility] just [place] hour away from [facility].
D/C plan: home with anticipated no needs. Spouse to transport at discharge.
CM will follow with discharge plan updates as hospitalization progresses
--- NOTE | 2024-07-28 12:04 | PTCARENOTE ---
Assessment unchanged. VSS. BG elevated. Bailer Operators Supervisor notified and diabetic ELECTRICAL SIGN WIRER consulted. 1200 Chemistry sent as ordered.
--- NOTE | 2024-07-28 13:01 | PN.DE.MGMTRT ---
Insulin Management
- -
07/28/2024 Diabetes Management Consult
Patient admitted 07/26 for thrombosis of new stent L popliteal artery. PMH angioplasty L popliteal artery, CAD, HTN, HCL, diabetes. A1C on admission 10.4, cr 1, eGFR >60.
Patient is awake alert and oriented able to discuss diabetes management. States he sometimes forgets his insulin pen when driving and stops for lunch and does not take his insulin. Discussed the importance of taking insulin before each meal to
prevent hyperglycemia. He states he has a glucose monitor and tests his glucose usually before breakfast dinner and bedtime. He admits sometimes he is hungry in the evening and takes extra food. He requests help with his diet. Dietitian consult
ordered.
Glucose fasting 209 this am and 335 pre lunch. Will increase hs lantus to 22 units and ac novolog to 12 units with low corrective insulin.
Will follow. Discussed with nurse.
Diabetes History
- -
Type of Diabetes: 2 requiring insulin
Pre-Admission Diabetes Regimen
07/27/24 07/28/24
18:15 04:06
Creatinine 1.0 1.0
Lab Results
Hemoglobin A1c 10.4 % (4.0-5.6) H 07/26/24 07:48
Insulin Pump Settings
IP Diabetes Regimen
07/27/24 07/27/24 07/27/24
16:15 17:57 18:15
Glucose 170 H
POC Glucose 131 H 158 H
07/27/24 07/28/24 07/28/24
21:26 04:06 07:55
Glucose 209 H
POC Glucose 236 H 199 H
07/28/24
11:33
Glucose
POC Glucose 335 H
Meal type: Breakfast
Amount consumed: 100%
Patient Education
[2024-07-28 13:27] LABS: Blood Urea Nitrogen 33 mg/dl (9-20); Calcium 8.1 mg/dl (8.4-10.2); Carbon Dioxide 15 mmol/L (22-30); Chloride 99 mmol/L (98-107); Estimated Creatinine Clearance 64 ml/min; Glucose 307 mg/dl (70-99); Potassium 4.6 mmol/L (3.5-5.1); Sodium 129 mmol/L (135-145); eGFR > 60.00
--- NOTE | 2024-07-28 15:08 | W.PN.HOSP.TC ---
Today's Communication/Plan
-
Assessment / Plan
Assessment / Plan
Gen-AAOx3, NAD
HEENT-NC, AT, anicteric, clear oral mm
Neck-supple
CV-reg, no M, +S1/S2
Lungs-clear B/L
Abd-soft, NT, ND
Musculoskeletal-no edema, no deformity
Skin-warm and dry
Neuro-grossly non-focal
Psych-calm, cooperative
Mr. Oseguera is a 69-year-old male with a medical history of peripheral vascular disease (recent left pop angioplasty 07/21/2024), ischemic cardiomyopathy (recovered LVEF, ICD in place), paroxysmal A-fib (on Eliquis), subdural hematoma (s/p
craniotomy and evacuation 2018), and insulin-dependent diabetes mellitus who presented with left leg and foot pain and coldness. After his recent procedure his left leg (mostly lateral calf) pain returned and he reported intermittent coldness in
his left foot. His vascular surgical team recommended he present to the emergency department for further evaluation. He is planned for OR tomorrow 07/27 with vascular surgery for left lower extremity bypass surgery.
Peripheral arterial disease:
-Presented with worsening left calf pain following recent left popliteal angioplasty 07/21/2024
-Status post OR with vascular surgery 07/27 for left superficial femoral to tibial bypass, tolerated procedure well with confucianism of flow distally, pain resolved
-Restart Eliquis tonight 07/28
-Continue aspirin and statin
Ischemic cardiomyopathy with recovered ejection fraction:
-Will continue GDMT with Entresto, carvedilol, p.o. Lasix daily, and spironolactone
IDDM:
-Continue home regimen of long and short acting insulin, additional sliding scale as needed
-Continue home Jardiance and metformin
Paroxysmal A-fib:
-Currently rate controlled
-Continue beta-blockade with carvedilol
-Holding Eliquis perioperatively
CODE STATUS: Full code
Anticipated Discharge: 24 - 48 hours
Subjective/Interval History
-
Date of Service: July 28, 2024
Patient was seen and examined bedside this morning. Tolerated left lower extremity bypass surgery well yesterday. Pain resolved, still feels some numbness.
Objective Data
-
Labs:
Laboratory Results
07/28/24 07/28/24
04:06 11:57
WBC 6.6
Hgb 13.1
Hct 38.1 L
Plt Count 167
PT 14.0
INR 1.02
APTT 25.9
Sodium 133 L 129 L
Potassium 4.4 4.6
Chloride 104 99
Carbon Dioxide 11 L* 15 L
BUN 27 H 33 H
Creatinine 1.0 1.2
Glucose 209 H 307 H
Calcium 7.7 L 8.1 L
Vital Signs:
Vital Signs
Temp Pulse Resp BP Pulse Ox
97.8 F 71 18 127/57 95
07/28/24 11:40 07/28/24 13:45 07/28/24 13:45 07/28/24 13:00 07/28/24 13:45
I&O
07/27/24 07/28/24 07/29/24
06:59 06:59 06:59
Intake Total 1350 / 1450 800 / 800
Output Total 1425 / 1425 485 / 485
Balance - 315 / 315
Review of Systems
-
History Source: Patient
All other systems: Reviewed and negative
Physical Exam
-
General: No Apparent Distress
[2024-07-28] MEDS: NOVOLOG FLEXPEN 12 UNITS SC (17:44)
[2024-07-28 17:59] LABS: Glucose - Point of Care 312 mg/dl (70-99)
[2024-07-28 19:13] LABS: Hepatitis C Antibody Negative (Negative)
--- NOTE | 2024-07-28 19:42 | PTCARENOTE ---
pt AAOx3, c/o discomfort at times to LLE, refusing meds at this time, Vpaced on the monitor, HR in the 70s, 94% RA, denies SOB, pt tolerating diet, voiding in toilet, LLE dressing C/D/I, no drainage noted, pt has + pulses with doppler to LLE, call
moreno in reach.
[2024-07-28] MEDS: LANTUS 0.22 UNITS SC (20:52)
[2024-07-28] MEDS: ELIQUIS 5 MG PO (20:53)
[2024-07-28] MEDS: CRESTOR 40 MG PO (20:53)
[2024-07-28] MEDS: ZETIA 10 MG PO (20:53)
[2024-07-28] MEDS: VITAMIN B-12 100 MCG PO (20:54)
[2024-07-28 20:58] LABS: Glucose - Point of Care 234 mg/dl (70-99)
[2024-07-29] VITALS (15 sets, daily range): BP systolic 107–152; BP diastolic 59–81; PULSE 66; BMI 32.0
--- NOTE | 2024-07-29 | PTCARENOTE ---
no changes from prior assessment, pt resting in bed, + pulses with doppler, call moreno in reach
[2024-07-29] MEDS: NSS 1000 IV (01:27)
--- NOTE | 2024-07-29 04:20 | PTCARENOTE ---
no changes from prior assessment, pt states he had a large BM and voided in the toilet, pt back in bed and call moreno in reach
[2024-07-29 05:22] LABS: % Basophils 0.2 % (0-2); % Eosinophils 0.6 % (0-6); % Immature Granulocytes 0.2 % (0-0.5); % Lymphocytes 23.8 % (20.5-51.1); % Monocytes 12.5 % (1.7-9.3); % Neutrophils 62.7 % (42.2-75.2); Absolute Lymphocytes 1.5 10^3/uL (1.2-3.4); Absolute Monocytes 0.8 10^3/uL (0.1-0.6); Absolute Neutrophils 3.9 10^3/uL (1.4-6.5); Hematocrit 36.7 % (39.0-52.0); Hemoglobin 12.2 g/dL (13.0-18.0); Mean Corp Hgb Conc. 33.2 g/dL (33.0-37.0); Mean Corpuscular Hgb 29.8 pg (27.0-31.0); Mean Corpuscular Volume 89.7 fL (80.0-94.0); Nucleated Red Blood Cells % 0 % (-); Platelet Count 196 10^3/uL (130-400); Red Blood Cell Count 4.09 10^6/uL (4.70-6.10); Red Cell Dist. Width 14.3 % (11.5-14.5); White Blood Cell Count 6.2 10^3/uL (4.8-10.8)
[2024-07-29 05:56] LABS: Blood Urea Nitrogen 32 mg/dl (9-20); Calcium 8.1 mg/dl (8.4-10.2); Carbon Dioxide 20 mmol/L (22-30); Chloride 104 mmol/L (98-107); Estimated Creatinine Clearance 85 ml/min; Glucose 176 mg/dl (70-99); Magnesium 2.3 mg/dl (1.6-2.3); Phosphorus 2.4 mg/dl (2.5-4.5); Potassium 4.4 mmol/L (3.5-5.1); Sodium 134 mmol/L (135-145); eGFR > 60.00
--- NOTE | 2024-07-29 07:23 | PN.DE.MGMTRT ---
Insulin Management
- -
07/29/2024: Diabetes Management F/U:
69 year old male w/PMH: CAD, HTN, HCL, T2DM, PVD with in-stent stenosis s/p balloon angioplasty L popliteal artery 07/21/2024, now presents with worsening leg pain and cold foot. He is now s/p LLE bypass surgery on 07/27/2024.
States he sometimes forgets his insulin pen when driving and stops for lunch and does not take his insulin. He states he has a glucose monitor and tests his glucose usually before breakfast dinner and bedtime. He admits sometimes he is hungry in the
evening and takes extra food.
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
A1C on admission 10.4%, Cr 1, eGFR >60.
Patient is awake, alert and oriented, resting in bed, offers no complaints, able to discuss diabetes management.
States he doesn't take his insulin pen with him when he is leaving his house, so when driving and stops for lunch and does not take his insulin.
Discussed the importance of taking insulin before each meal to prevent hyperglycemia and to avoid the risk of short and termite technician complications.
Emphasized the importance of monitoring his blood sugars before each meal. He states he doesn't know what foods to avoid and requests help with his diet. Dietitian consult ordered.
1/30 Glucose fasting 209 and 335 pre lunch. HS Lantus was increased to 22 units and AC NovoLog to 12 units with low corrective insulin.
1/30 Premeal glucose range 199 to 335, requiring 1-4 units of additional corrective insulin. FBG 176 this AM.
Will increase Lantus to 24 units and AC NovoLog to 14 units. Cont low corrective. Metformin 1000 mg BID and Farxiga 10mg daily
Will cont to follow and make further insulin adjustments of necessary.
Diabetes History
- -
Type of Diabetes: 2 requiring insulin
Pre-Admission Diabetes Regimen
07/28/24 07/29/24
11:57 04:52
Creatinine 1.2 0.9
Lab Results
Hemoglobin A1c 10.4 % (4.0-5.6) H 07/26/24 07:48
Insulin Pump Settings
IP Diabetes Regimen
07/28/24 07/28/24 07/28/24
07:55 11:33 11:57
Glucose 307 H
POC Glucose 199 H 335 H
07/28/24 07/28/24 07/29/24
17:42 20:46 04:52
Glucose 176 H
POC Glucose 312 H 234 H
Meal type: Breakfast
Amount consumed: 100%
Patient Education
--- NOTE | 2024-07-29 07:47 | PN.CDI ---
CDI
- -
CDI:
Physician Documentation Request
Admit Date: 07/26/24 09:23
Dear Doctor Aysha,
Please review the following and provide your response in the progress notes.
Clinical Indicators:
- Patient admit for PAD s/p left fem to tibial bypass
- 5L IVF given
- Sodium levels:
Laboratory Tests
07/28/24 07/28/24 07/29/24
04:06 11:57 04:52
Sodium 133 L 129 L 134 L
Please provide a diagnosis for the above lab values that were monitored and treatment rendered:
Hyponatremia
Clinically insignificant abnormal lab value
Other (please specify)
Use of terms such as suspected, likely, concern for, or probable (associated with a specific diagnosis that is being evaluated, monitored, or treated as if it exists) are acceptable and can be coded in the inpatient setting, when documented at the
time of discharge.
Thank you,
Eladio Weiss RN
CDI Specialist
Please use your independent medical judgment in providing your response.
--- NOTE | 2024-07-29 07:52 | W.PN.INTV ---
Today's Communication / Plan
Recommendations
Continue management per vascular surgery
Aspirin, apixaban continues
Ambulate
Blood sugars improved, anion gap resolved
Reviewed with patient importance of dietary discretion
Disposition efforts noted
Transferred out of ICU. We will sign off. Please call with questions
Assessment
-
69-year-old male with history of peripheral vascular disease, with in-stent stenosis status post balloon angioplasty 07/21/2024, now presents with worsening leg pain and cold foot. He is status post left lower extremity bypass surgery 07/27/2024. We
are asked to help from critical care standpoint
S/P left femoral to posterior tibial artery bypass with ipsilateral nonreversed greater saphenous vein conduit
07/27/2024
Recent balloon angioplasty of in-stent restenosis of left popliteal artery 07/21/2024
Left lower extremity stent 2021
Hyperglycemia
Elevated anion gap
Mild aortic stenosis, valve area 1.9 cm�
PA pressure 35, per echo 07/26/2024
Conditions present prior to admission
Hypertension/hyperlipidemia
Coronary disease
LAD stent/left circumflex stent 2016
Hx of Left bundle branch block
History of ischemic cardiomyopathy
s/p BiV ICD, 2016
History of subdural hematoma status postcraniotomy, evacuation 2018
Atrial fibrillation on apixaban
[id number] history of smoking quit 2014
Plan/recommendations
At this time, patient appears improved
Anion gap has resolved
Serum bicarbonate improved, blood sugars improved
EKG AV paced rhythm
Left lower extremity warm, pulses intact. Ambulating without difficulty
Moving forward
Continue with management per vascular surgery
aspirin, apixaban 5 mg twice a day
Discussed importance of dietary discretion given hyperglycemia
Appreciate input of diabetic nurse practitioner
Discontinue IV fluids
Reviewed with critical care nursing, respiratory care, pharmacy, case management
Reviewed with primary service
Disposition efforts
Transferred out of ICU. We will sign off. Please call with questions
Subjective Dataa
Subjective Data
Date of Service:
Date of Service: July 29, 2024
Subjective:
Patient is feeling well. Large left incision noted, patient denies shortness of breath, chest pain, nausea, abdominal pain. Ambulated without difficulty, minimal left leg pain
Objective Data
Data Reviewed
Vital Signs / I&O / Oxygen:
Vital Signs
Temp Pulse Resp BP Pulse Ox
98.2 F 62 16 117/59 91
07/29/24 04:20 07/29/24 06:00 07/29/24 06:00 07/29/24 06:00 07/29/24 06:00
Intake and Output
07/28/24 07/29/24 07/30/24
06:59 06:59 06:59
Intake Total 1350 / 1450 3400 / 3400
Output Total 1425 / 1425 2935 / 2935
Balance - 465 / 465
SaO2 91
Physical Exam
General: Comfortable
HEENT: Normocephalic and Anicteric
Cardiovascular: S1-S2, Regular Rhythm, Murmur (n), Rub (n), Peripheral Edema (n) and Other (Left lower extremity incision intact, extremities warm)
Respiratory: Wheeze (n), Crackles (n), Rhonchi (n) and Non-Labored Respirations
GI: Soft, Non Distended and Non Tender
Neurology: Awake, Alert and No Motor Deficits (Moves all extremities, neuroexam nonfocal)
Skin: Cyanosis (n) and Rash (n)
Labs/Micro/Reports
Lab Data
07/29/24 04:52
07/29/24 04:52
--- NOTE | 2024-07-29 08:00 | PTCARENOTE ---
Assumed care of pt at 0715 following shift report. Pt resting quietly in bed. Reports 04/07 LLE incisional pain. Surgical incisions KASIA- well approximated and w/o drainage. Lt DP/PT pulses by doppler. Lt LE pink and warm to touch. Pt denies
numbness. Medicated w/ Oxycodone for pain per MAR. Physical assessment completed as documented. Comfort care provided. Call moreno w/in pt reach and safe environment maintained.
[2024-07-29] MEDS: ENTRESTO 49 MG/51 MG 1 TAB PO ×2 (08:04→21:58)
[2024-07-29] MEDS: ASPIR LOW (ENTERIC COATED) 81 MG PO (08:04)
[2024-07-29] MEDS: LASIX 40 MG PO (08:04)
[2024-07-29] MEDS: COREG 25 MG PO ×2 (08:05→21:57)
[2024-07-29] MEDS: ROXICODONE 5 MG PO (08:05)
[2024-07-29] MEDS: ALDACTONE 12.5 MG PO (08:05)
[2024-07-29] MEDS: FARXIGA 10 MG PO (08:05)
[2024-07-29] MEDS: ELIQUIS 5 MG PO ×2 (08:06→21:57)
[2024-07-29] MEDS: GLUCOPHAGE 1000 MG PO ×2 (08:06→16:33)
[2024-07-29] MEDS: PROTONIX 40 MG PO (08:06)
[2024-07-29] MEDS: NOVOLOG FLEXPEN-LOW RESISTANCE SC ×2 (08:07→12:44)
[2024-07-29] MEDS: NOVOLOG FLEXPEN 14 UNITS SC ×3 (08:08→18:49)
--- NOTE | 2024-07-29 08:14 | W.PN.VS ---
Addendum entered and electronically signed by Rosalio Davis MD 07/29/24 08:25:
Seen and examined with KIMMIE Wallace. Agree with findings as noted below. No new complaints. Left lower extremity incisions all clean dry and intact. Thigh and calf are both soft. 2+ palpable graft pulse in the vicinity of the knee. 2+ palpable PT
pulse at the ankle/foot. Plan/as discussed and noted below. Appreciate diabetic/glucose control measures. Labs reviewed, improvement in bicarb.
Original Note:
Today's Communication / Plan
-
Patient seen and examined at bedside with Dr. Rosalio Davis, below plan reviewed with attending.
Assessment/Plan
-
POD 2 Left femoral (superficial femoral artery) to posterior tibial artery bypass with ipsilateral nonreversed greater saphenous vein conduit
Plan:
-Okay to continue home Eliquis for vascular surgical perspective
-Can work with physical therapy today and progress ambulation as tolerated
-From a vascular perspective okay for downgrade to telemetry, will defer to hospitalist team when cleared for downgrade given concern for DKA yesterday
Subjective Data
-
Date of Service: July 29, 2024
Patient seen and examined at bedside, endorses tolerating ambulation. Reports rest pain nearly resolved but has continued intermittent foot pain with ambulation, well-managed with current pain medication regimen. Tolerating p.o. diet.
Objective Data
-
Vital Signs
Temp Pulse Resp BP Pulse Ox
98.2 F 63 16 143/69 91
07/29/24 04:20 07/29/24 08:05 07/29/24 06:00 07/29/24 08:05 07/29/24 06:00
Intake and Output
07/28/24 07/29/24 07/30/24
06:59 06:59 06:59
Intake Total 1350 / 1450 3400 / 3400
Output Total 1425 / 1425 2935 / 2935
Balance - 465 / 465
Intake:
Oral fluids 400 / 400 1000 / 1000
IV fluids (Total) 950 / 1050 2400 / 2400
Nss 1,000 ml @ 100 mls/hr IV . 1400 / 1400
Q10H GILBERTO Rx#:[id number]
Sterile Water For Injection 1000 / 1000
1000 ml 1,000 ml @ 100 mls/hr
IV .[id number] GILBERTO with Sodium
Bicarbonate 150 Meq Rx#:
[id number]
nss 950 / 950 0 / 0
Output:
Urine, Garcias 400 / 400 485 / 485
Urine, Voided 1025 / 1025 2450 / 2450
Other:
Number of approximated LARGE 1
amounts of urine
Lab Results
07/29/24 04:52
07/29/24 04:52
Calcium 8.1 mg/dl (8.4-10.2) L 07/29/24 04:52
Phosphorus 2.4 mg/dl (2.5-4.5) L 07/29/24 04:52
Magnesium 2.3 mg/dl (1.6-2.3) 07/29/24 04:52
Physical Exam
-
AAOX3
No tachypnea
No tachycarida
Abd soft, nontender
LLE dressings all dry and intact, removed, Exofin glue clean dry and intact with suture line well-approximated
Compartments soft
Left Palpable PT
BL feet warm
[2024-07-29 08:17] LABS: Glucose - Point of Care 143 mg/dl (70-99)
[2024-07-29] MEDS: NOVOLOG FLEXPEN SC (08:36)
--- NOTE | 2024-07-29 12:00 | PTCARENOTE ---
Pt continues to rest quietly, OOB to use BR prn. Tolerating increased activity w/o complaint or changes noted from previous assessment findings. Family visiting. Safe environment maintained.
[2024-07-29 12:26] LABS: Glucose - Point of Care 142 mg/dl (70-99)
--- NOTE | 2024-07-29 15:29 | CM ---
CM following re: discharge planning.
Reviewed pt's chart, met with pt.
Pt is POD 2 Left femoral (superficial femoral artery) to posterior tibial artery bypass, continue supportive care and pt is downgraded from ICU level of care. .
PT and OT evaluations noted - home PT/OT recommended. pt is aware, expressed his agreement. A list of VN vendors provided. Pt preferred [facility].
A referral to [facility] made.
IMM reviewed, placed on chart, pt has a copy.
D/C plan: home with [facility] and family support. Spouse to transport at discharge.
CM will follow with discharge plan updates as needed.
--- NOTE | 2024-07-29 15:51 | W.PN.HOSP.TC ---
Today's Communication/Plan
-
Assessment / Plan
Assessment / Plan
Gen-AAOx3, NAD
HEENT-NC, AT, anicteric, clear oral mm
Neck-supple
CV-reg, no M, +S1/S2
Lungs-clear B/L
Abd-soft, NT, ND
Musculoskeletal-no edema, no deformity
Skin-warm and dry, medial LLE surgical scar CDI
Neuro-grossly non-focal
Psych-calm, cooperative
Mr. Oseguera is a 69-year-old male with a medical history of peripheral vascular disease (recent left pop angioplasty 07/21/2024), ischemic cardiomyopathy (recovered LVEF, ICD in place), paroxysmal A-fib (on Eliquis), subdural hematoma (s/p
craniotomy and evacuation 2018), and insulin-dependent diabetes mellitus who presented with left leg and foot pain and coldness. After his recent procedure his left leg (mostly lateral calf) pain returned and he reported intermittent coldness in
his left foot. His vascular surgical team recommended he present to the emergency department for further evaluation. He went to the OR 07/27 with vascular surgery for left lower extremity bypass surgery.
Peripheral arterial disease:
-Presented with worsening left calf pain following recent left popliteal angioplasty 07/21/2024
-Status post OR with vascular surgery 07/27 for left superficial femoral to tibial bypass, tolerated procedure well with zoroastrian of flow distally, pain resolved
-Restarted Eliquis 07/28
-Continue aspirin and statin
-Evaluated by PT/OT who recommended home health
-Downgraded to telemetry today, will follow-up with vascular surgery regarding timing of discharge to home
Ischemic cardiomyopathy with recovered ejection fraction:
-Will continue GDMT with Entresto, carvedilol, p.o. Lasix daily, and spironolactone
IDDM:
-Continue home regimen of long and short acting insulin, additional sliding scale as needed
-Continue home Jardiance and metformin
Metabolic acidosis:
-Likely secondary to stress from surgery
-Serum bicarb dropped to 11 and blood glucose jumped to 355
-Recovered with insulin regimen and bicarb supplementation
Hyponatremia:
-Mild, improving
-Will monitor
Paroxysmal A-fib:
-Currently rate controlled
-Continue beta-blockade with carvedilol
-Holding Eliquis perioperatively
CODE STATUS: Full code
Anticipated Discharge: 24 - 48 hours
Subjective/Interval History
-
Date of Service: July 29, 2024
Patient was seen and examined at bedside's morning. Surgical scar on medial left lower extremity appears to be doing well. Patient reports only minimal discomfort. Will attempt out of bed today with physical therapy.
Objective Data
-
Labs:
Laboratory Results
07/29/24
04:52
WBC 6.2
Hgb 12.2 L
Hct 36.7 L
Plt Count 196
Sodium 134 L
Potassium 4.4
Chloride 104
Carbon Dioxide 20 L
BUN 32 H
Creatinine 0.9
Glucose 176 H
Calcium 8.1 L
Vital Signs:
Vital Signs
Temp Pulse Resp BP Pulse Ox
98 F 63 17 143/69 95
07/29/24 15:30 07/29/24 10:00 07/29/24 08:00 07/29/24 08:05 07/29/24 08:00
I&O
07/28/24 07/29/24 07/30/24
06:59 06:59 06:59
Intake Total 1350 / 1450 3400 / 3500 780 / 780
Output Total 1425 / 1425 2935 / 2935 800 / 800
Balance - 465 / 565 -20 / -20
Review of Systems
-
History Source: Patient
All other systems: Reviewed and negative
Physical Exam
-
General: No Apparent Distress
[2024-07-29] MEDS: NEUTRA-PHOS POWDER PACKET 250 MG PO (16:30)
--- NOTE | 2024-07-29 17:05 | PTCARENOTE ---
Transfer report called to 'Randa BURNETT'. Pt to transfer to Rm 2133 M/S level of care. Pt w/o changes from previous assessment findings or new complaints. Pt's personal belongings sent w/ pt at time of transfer.
[2024-07-29 17:20] LABS: Glucose - Point of Care 172 mg/dl (70-99)
[2024-07-29] MEDS: MORPHINE SULFATE 2 MG IV (17:46)
[2024-07-29] MEDS: NOVOLOG FLEXPEN-LOW RESISTANCE 1 UNITS SC (18:48)
[2024-07-29] MEDS: LANTUS 0.24 UNITS SC (21:56)
[2024-07-29 21:57] LABS: Glucose - Point of Care 150 mg/dl (70-99)
[2024-07-29] MEDS: CRESTOR 40 MG PO (21:57)
[2024-07-29] MEDS: ZETIA 10 MG PO (21:59)
[2024-07-29] MEDS: VITAMIN B-12 100 MCG PO (21:59)
[2024-07-30 07:41] LABS: Glucose - Point of Care 108 mg/dl (70-99)
[2024-07-30] MEDS: NOVOLOG FLEXPEN-LOW RESISTANCE SC (07:46)
[2024-07-30 07:58] LABS: % Basophils 0.2 % (0-2); % Eosinophils 2.5 % (0-6); % Immature Granulocytes 0.2 % (0-0.5); % Lymphocytes 34.3 % (20.5-51.1); % Monocytes 11.8 % (1.7-9.3); Absolute Eosinophils 0.2 10^3/uL (0-0.7); Absolute Monocytes 0.7 10^3/uL (0.1-0.6); Hematocrit 35.7 % (39.0-52.0); Hemoglobin 12.1 g/dL (13.0-18.0); Mean Corp Hgb Conc. 33.9 g/dL (33.0-37.0); Mean Corpuscular Hgb 30.3 pg (27.0-31.0); Mean Corpuscular Volume 89.5 fL (80.0-94.0); Nucleated Red Blood Cells % 0 % (-); Platelet Count 191 10^3/uL (130-400); Red Blood Cell Count 3.99 10^6/uL (4.70-6.10); Red Cell Dist. Width 14.2 % (11.5-14.5); White Blood Cell Count 5.9 10^3/uL (4.8-10.8)
[2024-07-30 08:00] VITALS: BP 132/64
[2024-07-30] MEDS: NOVOLOG FLEXPEN 14 UNITS SC (08:17)
[2024-07-30] MEDS: FARXIGA 10 MG PO (08:17)
[2024-07-30] MEDS: ALDACTONE 12.5 MG PO (08:17)
[2024-07-30] MEDS: PROTONIX 40 MG PO (08:18)
[2024-07-30] MEDS: ELIQUIS 5 MG PO (08:18)
[2024-07-30] MEDS: COREG 25 MG PO (08:18)
[2024-07-30] MEDS: GLUCOPHAGE 1000 MG PO (08:18)
[2024-07-30] MEDS: LASIX 40 MG PO (08:18)
[2024-07-30] MEDS: ASPIR LOW (ENTERIC COATED) 81 MG PO (08:18)
[2024-07-30] MEDS: ENTRESTO 49 MG/51 MG 1 TAB PO (08:18)
[2024-07-30 08:21] LABS: Blood Urea Nitrogen 21 mg/dl (9-20); Calcium 8.2 mg/dl (8.4-10.2); Carbon Dioxide 25 mmol/L (22-30); Chloride 103 mmol/L (98-107); Estimated Creatinine Clearance 85 ml/min; Glucose 119 mg/dl (70-99); Magnesium 2.5 mg/dl (1.6-2.3); Phosphorus 2.9 mg/dl (2.5-4.5); Potassium 4.1 mmol/L (3.5-5.1); Sodium 137 mmol/L (135-145); eGFR > 60.00
--- NOTE | 2024-07-30 10:44 | W.PN.VS ---
Today's Communication / Plan
-
POD 3 Left femoral (superficial femoral artery) to posterior tibial artery bypass with ipsilateral nonreversed greater saphenous vein conduit
Plan:
-Okay to continue home Eliquis
-Can work with physical therapy today and progress ambulation as tolerated
-OK for discharge from vascular surgery perspective
-Follow up with Davis in clinic
Assessment/Plan
-
POD 3 Left femoral (superficial femoral artery) to posterior tibial artery bypass with ipsilateral nonreversed greater saphenous vein conduit
Plan:
-Okay to continue home Eliquis
-Can work with physical therapy today and progress ambulation as tolerated
-OK for discharge from vascular surgery perspective
-Follow up with Davis in clinic
Subjective Data
-
Date of Service: July 30, 2024
POD 3 L SFA to PT bypass with vein
no rest pain in left foot
some pain in left calf/ruiz
no motor/sensory deficit
Objective Data
-
Vital Signs
Temp Pulse Resp BP Pulse Ox
98.1 F 63 18 132/64 95
07/30/24 08:00 07/30/24 08:18 07/30/24 08:00 07/30/24 08:18 07/30/24 08:00
Intake and Output
07/29/24 07/30/24 07/31/24
06:59 06:59 06:59
Intake Total 3400 / 3500 1979 / 1979
Output Total 2935 / 2935 1700 / 1700
Balance 465 / 565 280 / 280
Intake:
Oral fluids 1000 / 1000 1680 / 1680
IV fluids (Total) 2400 / 2500 300 / 300
Nss 1,000 ml @ 100 mls/hr IV . 1400 / 1500 300 / 300
Q10H GILBERTO Rx#:[id number]
Sterile Water For Injection 1000 / 1000
1000 ml 1,000 ml @ 100 mls/hr
IV .[id number] GILBERTO with Sodium
Bicarbonate 150 Meq Rx#:
[id number]
nss 0 / 0
Output:
Urine, Garcias 485 / 485
Urine, Voided 2450 / 2450 1700 / 1700
Other:
Number of approximated MODERATE 3
amounts of urine
Number of approximated LARGE 1
amounts of urine
Lab Results
07/30/24 06:10
07/30/24 06:10
Calcium 8.2 mg/dl (8.4-10.2) L 07/30/24 06:10
Phosphorus 2.9 mg/dl (2.5-4.5) 07/30/24 06:10
Magnesium 2.5 mg/dl (1.6-2.3) H 07/30/24 06:10
Physical Exam
-
1+ L PT
toes warm, motor/sensory intact
incisions CDI
1+ edema to LLE with soft calf and thigh
[2024-07-30 12:00] VITALS: BP 129/69
[2024-07-30 12:09] LABS: Glucose - Point of Care 100 mg/dl (70-99)
--- NOTE | 2024-07-30 12:18 | W.DCSUMMARY ---
Discharge Summary
Discharge Data
Date of Admission: 07/26/24
Date of Discharge: 07/30/24
-
Pending Results: No
Hospital Course
Mr. Oseguera is a 69-year-old male with a medical history of peripheral vascular disease (recent left pop angioplasty 07/21/2024), ischemic cardiomyopathy (recovered LVEF, ICD in place), paroxysmal A-fib (on Eliquis), subdural hematoma (s/p
craniotomy and evacuation 2018), and insulin-dependent diabetes mellitus who presented with left leg and foot pain and coldness. After his recent procedure, his left leg pain returned (mostly in lateral calf) and he reported intermittent coldness
in his left foot. His vascular surgical team recommended he present to the emergency department for further evaluation. He went to the OR 07/27 with vascular surgery for left superficial femoral artery to posterior tibial artery bypass surgery
using ipsilateral nonreversed greater saphenous vein conduit. He tolerated the procedure well and distal flow was restored. His leg pain resolved. Postoperatively, he was hyperglycemic with a metabolic acidosis which resolved with IV fluids and
adjustment to his insulin regimen. His Eliquis was restarted on 07/28/2024. He was evaluated by physical therapy who recommended he use of rolling walker when ambulating but was otherwise safe for discharge to home with home health from a therapy
perspective. He will need to follow-up closely in the outpatient vascular surgery clinic. He should also follow-up closely with his primary care physician for ongoing management of his other medical issues including diabetes.
Gen-AAOx3, NAD
HEENT-NC, AT, anicteric, clear oral mm
Neck-supple
CV-reg, no M, +S1/S2
Lungs-clear B/L
Abd-soft, NT, ND
Musculoskeletal-no edema, no deformity
Skin-warm and dry, medial LLE surgical scar CDI
Neuro-grossly non-focal
Psych-calm, cooperative
Discharge Plan
-
Patient Disposition: Home with Home Care
Discharge Diagnosis/Procedures: Left femoral (superficial femoral artery) to posterior tibial artery bypass with ipsilateral nonreversed greater saphenous vein conduit
Diet: As tolerated and Diabetic, Carb Controlled
Activity: No strenuous activity
Driving Restrictions: Not until seen by your Dr
Bathing Restrictions: OK to Shower
Activity Restrictions/Additional Instructions:
Mr. Oseguera is a 69-year-old male with a medical history of peripheral vascular disease (recent left pop angioplasty 07/21/2024), ischemic cardiomyopathy (recovered LVEF, ICD in place), paroxysmal A-fib (on Eliquis), subdural hematoma (s/p
craniotomy and evacuation 2018), and insulin-dependent diabetes mellitus who presented with left leg and foot pain and coldness. After his recent procedure, his left leg pain returned (mostly in lateral calf) and he reported intermittent coldness
in his left foot. His vascular surgical team recommended he present to the emergency department for further evaluation. He went to the OR 07/27 with vascular surgery for left superficial femoral artery to posterior tibial artery bypass surgery
using ipsilateral nonreversed greater saphenous vein conduit. He tolerated the procedure well and distal flow was restored. His leg pain resolved. Postoperatively, he was hyperglycemic with a metabolic acidosis which resolved with IV fluids and
adjustment to his insulin regimen. His Eliquis was restarted on 07/28/2024. He was evaluated by physical therapy who recommended he use of rolling walker when ambulating but was otherwise safe for discharge to home with home health from a therapy
perspective. He will need to follow-up closely in the outpatient vascular surgery clinic. He should also follow-up closely with his primary care physician for ongoing management of his other medical issues including diabetes.
Instructions: Carb counting for adults with diabetes, Diabetes and diet
Stand Alone Forms: DC Instr - Vascular OR
Referrals:
Félix Moraes MD [Family Provider] -
Keren Abrams CRNP [Specified Professional Personl] - 08/12/24 11:15 am
Prescriptions:
Continued
furosemide 40 MG tablet
40 mg PO DAILY
aspirin 81 MG tablet,delayed release (/EC)
81 mg PO DAILY
spironolactone 12.5 MG tablet
12.5 mg PO DAILY
ezetimibe 10 mg Tablet
10 mg PO HS
rosuvastatin 20 mg Tablet
40 mg PO HS
insulin glargine 100 unit/mL Cartridge
20 unit SC HS
Jardiance 25 mg Tablet
25 mg PO DAILY
pantoprazole 40 mg Tablet,Delayed Release (Dr/Ec)
40 mg PO DAILY
icosapent ethyl 1 gram Capsule
2 g PO BID
carvedilol 25 mg tablet
25 mg PO BID
sacubitril-valsartan [Entresto] 49-51 mg tablet
1 tab PO BID
cyanocobalamin (vitamin B-12) 100 mcg Tablet
100 mcg PO HS
metformin 1,000 mg tablet
1,000 mg PO BID@0800,1700
Eliquis 5 mg tablet
5 mg PO BID
Changed
insulin aspart U-100 [Novolog U-100 Insulin aspart] 100 unit/mL Solution
14 unit SC AC Qty: 0 0RF
Discontinued
amoxicillin-pot clavulanate [Augmentin] 500-125 mg tablet
1 tab PO Q12
Rx Instructions:
07/26/24: last dose 07/27/24
Discharge Orders:
Discharge Patient (As Directed); Ordered 07/30/24
Ordered By: Kobe Olmstead
Care Plan Goals
Care Plan Goals:
Problem: Readiness for enhanced knowledge related to diagnosis and treatment plan
Goal: Understand your diagnosis and treatment plan needs, including medications if applicable.
Instructions: Know your diagnosis, underlying causes and treatment plan options, including medications if applicable. Consult with your health care team to learn about your diagnosis and treatment plan, including medications if applicable.
Discharge Date and Time
Print Language: DANISH
--- NOTE | 2024-07-30 12:43 | CM ---
For discharge today
Vladimir to follow at home
Has ride at discharge
Plan - home with Vladimir
f - [phone]
[2024-07-30] MEDS: ROXICODONE 5 MG PO (13:29)
--- NOTE | 2024-07-30 13:50 | PTCARENOTE ---
Patient discharged home with VN. This RN removed patient's IVs and reviewed discharge instructions with patient and patient's spouse and daughter at the bedside, all verbalized understanding. Patient provided RW to take home by PT. Patient dressed
and gathered belongings in room with assistance of family members. Patient refused educational packets included in discharge paperwork. Vitals taken by tech stable. Patient being transported home by daughter, taken down to car via staff escort and
wheelchair.
== END 2024-07-30 15:04 | disposition home health service (06) | DRG 253 ==
LOC: 2 NORTH 09:23
PROVIDERS: Nurse Practitioner; Nurse Practitioner Acute Care; Surgery Vascular Surgery; ADMITTING PHYSICIAN Internal Medicine; CONSULT PHYSICIAN Internal Medicine; CONSULT PHYSICIAN Internal Medicine Critical Care Medicine; EMERGENCY PHYSICIAN Emergency Medicine; FAMILY PHYSICIAN Internal Medicine
PROC: 06BQ0ZZ Excision of Left Saphenous Vein, Open Approach (ICD-10-PCS; 2024-07-27)
PROC: 041L09N Bypass Left Femoral Artery to Posterior Tibial Artery with Autologous Venous Tissue, Open Approach (ICD-10-PCS; 2024-07-27)
DX: T82.856A Stenosis of peripheral vascular stent, initial encounter (principal); E87.1 Hypo-osmolality and hyponatremia; E87.20 Acidosis, unspecified; I50.32 Chronic diastolic (congestive) heart failure; I82.432 Acute embolism and thrombosis of left popliteal vein; E11.51 Type 2 diabetes mellitus with diabetic peripheral angiopathy without gangrene; E78.00 Pure hypercholesterolemia, unspecified; I11.0 Hypertensive heart disease with heart failure; I48.0 Paroxysmal atrial fibrillation; I25.5 Ischemic cardiomyopathy; M79.672 Pain in left foot; I25.10 Atherosclerotic heart disease of native coronary artery without angina pectoris; E11.65 Type 2 diabetes mellitus with hyperglycemia; I99.8 Other disorder of circulatory system; I35.0 Nonrheumatic aortic (valve) stenosis; I44.7 Left bundle-branch block, unspecified; Y83.8 Other surgical procedures as the cause of abnormal reaction of the patient, or of later complication, without mention of misadventure at the time of the procedure; Y92.9 Unspecified place or not applicable; Z95.810 Presence of automatic (implantable) cardiac defibrillator; Z95.820 Peripheral vascular angioplasty status with implants and grafts; Z79.01 Long term (current) use of anticoagulants; Z87.891 Personal history of nicotine dependence; Z87.820 Personal history of traumatic brain injury; Z79.82 Long term (current) use of aspirin; Z79.84 Long term (current) use of oral hypoglycemic drugs; Z79.4 Long term (current) use of insulin
CPT/HCPCS: 35566; 71045; 75635; 80048; 80061; 82962; 83036; 83735; 84100; 85025; 85027; 85610; 85730; 86803; 86850; 86900; 86901; 93005; 93306; 93922; 93925; 93970; 97163; 97167; 99285; Q9967

== ENCOUNTER → 2024-09-01 14:33 | Outpatient (REF) | payer MEDICARE, SELFPAY | LOC: RAD 14:33 | PROVIDERS: ATTENDING PHYSICIAN Registered Nurse | DX: I73.9 Peripheral vascular disease, unspecified (principal) | CPT/HCPCS: 93922; 93925 ==

== ENCOUNTER → 2024-11-28 13:42 | Outpatient (REF) | payer MEDICARE, SELFPAY | LOC: DHVS 13:42 | PROVIDERS: ATTENDING PHYSICIAN Surgery Vascular Surgery | DX: I73.9 Peripheral vascular disease, unspecified (principal) | CPT/HCPCS: 93922; 93925 ==